=== PATIENT | female | born 1975 | race African-American/Black ===

== ENCOUNTER 2019-12-18 08:02 | Emergency (ER) | payer MEDICAID, OTHER ==
[~2019-12-18] VITALS: Ht 165.1 cm; Wt 61.2 kg
[2019-12-18 08:21] VITALS: BP 111/82
[2019-12-18 09:10] LABS: Basophils # (auto) 0 10 ^3/uL (0-0.2); Basophils % (auto) 0.9 % (0.0-2.0); Eosinophils # (auto) 0.1 10 ^3/uL (0-0.8); Eosinophils % (auto) 4.4 % (0.0-7.0); Hematocrit 39.5 % (36.0-46.0); Hemoglobin 13.2 g/dL (12.2-16.2); Lymphocytes # (auto) 0.6 10 ^3/uL (0.4-5.4); Mean Corpuscular Hemoglobin 31.4 pg (28.0-32.0); Mean Corpuscular Hgb Conc. 33.4 g/dL (32.0-36.0); Monocytes # (auto) 0.3 10 ^3/uL (0-1.3); Monocytes % (auto) 11.2 % (0.0-12.0); Neutrophils # (auto) 1.5 10 ^3/uL (1.6-8.6); Neutrophils % (auto) 59.5 % (37.0-80.0); Nucleated Red Blood Cells % 0.9 %; Red Blood Cells 4.21 10^6/uL (4.0-5.20); Red Cell Distribution Width 13.3 % (11.8-14.3); White Blood Cell 2.4 10^3/uL (4.4-10.8)
[2019-12-18] MEDS ORDERED: IOHEXOL 350 MG/ML 100ML IJ ONE (09:20)
[2019-12-18 09:35] LABS: Platelet Count (auto) 89 10^3/uL (140-450)
[2019-12-18 09:38] LABS: Albumin 2.7 g/dL (3.4-5.0); Calcium 8.4 mg/dL (8.5-10.1); Potassium 4.4 mmol/L (3.5-5.1)
[2019-12-18 09:43] LABS: BUN/Creatinine Ratio 25.2; Bilirubin, Total 0.3 mg/dL (0.2-1.0); Total Protein 9.2 g/dL (6.4-8.2)
[2019-12-18] MEDS ORDERED: HYDROcodone-ACET 5/325MG TAB PO PRN (11:00)
[2019-12-18] MEDS ORDERED: ALBUTEROL SULF 2.5 MG/0.5ML(0.5%) NEB SOLN NEB PRN (11:00)
[2019-12-18] MEDS ORDERED: ONDANSETRON HCL 4 MG/2 ML VIAL IV PRN (11:00)
[2019-12-18] MEDS ORDERED: hydrALAZINE HCL 20 MG/ML VL IV PRN (11:00)
[2019-12-18] MEDS ORDERED: NITROGLYCERIN 0.4 MG SL TAB SL PRN (11:00)
[2019-12-18] MEDS ORDERED: IPRATROPIUM BROM 0.5 MG/2.5ML INH SOL NEB PRN (11:00)
[2019-12-18] MEDS ORDERED: MORPHINE SULF INJ 2 MG/ML SYRINGE 1ML IV PRN ×2 (11:00)
[2019-12-18] MEDS ORDERED: ACETAMINOPHEN 500 MG TAB PO PRN (11:00)
[2019-12-18] MEDS ORDERED: SODIUM CHLORIDE 0.9% 1,000 ML IV SCH (11:15)
[2019-12-18 11:37] LABS: CRP High Sensitivity 0.41 mg/dL (< 0.3)
[2019-12-18] MEDS ORDERED: ATORVASTATIN 20 MG TAB PO SCH (22:00)
[2019-12-18] MEDS ORDERED: METOPROLOL TARTRATE 25 MG TAB PO SCH (22:00)
[2019-12-18 22:20] LABS: INR 0.92 (0.9-1.15)
[2019-12-19] MEDS ORDERED: ALBU2TAB4 PO (04:55)
[2019-12-19] MEDS ORDERED: LISINOPRIL 10 MG TAB PO SCH (10:00)
[2019-12-19] MEDS ORDERED: FAMOTIDINE 20 MG TAB PO SCH (10:00)
[2019-12-20 08:48] LABS: Hepatitis B Surface Antibody Positive
[2019-12-20 13:03] LABS: Hepatitis B Surface Antigen Negative (Negative); Hepatitis C Antibody Negative (Negative)
== END 2019-12-18 13:13 | disposition left against medical advice (07) ==
LOC: ER 08:02 → TELE 08:03 → UNDOADMIN 08:03 → ER 13:13
DX: R07.89 Other chest pain (principal); R79.1 Abnormal coagulation profile; F17.210 Nicotine dependence, cigarettes, uncomplicated; J45.909 Unspecified asthma, uncomplicated; Z98.51 Tubal ligation status
CPT/HCPCS: 36415; 71046; 71275; 76705; 80053; 83615; 83735; 83880; 84484; 85025; 85379; 85610; 86038; 86141; 86706; 86803; 87340; 93005; 93970; 99285; Q9967; 93017

== ENCOUNTER 2019-12-18 20:38 | Inpatient (IN) | payer MEDICAID ==
[~2019-12-18] VITALS: Ht 165.1 cm; Wt 62.0 kg
[2019-12-18] MEDS ORDERED: MORPHINE SULFATE 4 MG/ML SYR/VIAL IV ONE (22:15)
[2019-12-18] MEDS ORDERED: ONDANSETRON HCL 4 MG/2 ML VIAL IV ONE (22:15)
[2019-12-18 22:55] LABS: Basophils # (auto) 0 10 ^3/uL (0-0.2); Eosinophils # (auto) 0.1 10 ^3/uL (0-0.8); Eosinophils % (auto) 3.9 % (0.0-7.0); Hematocrit 29.6 % (36.0-46.0); Hemoglobin 10.4 g/dL (12.2-16.2); Lymphocytes # (auto) 0.6 10 ^3/uL (0.4-5.4); Lymphocytes % (auto) 27.7 % (10.0-50.0); Mean Corpuscular Hemoglobin 32.6 pg (28.0-32.0); Mean Corpuscular Volume 93.2 fL (80.0-100.0); Monocytes # (auto) 0.2 10 ^3/uL (0-1.3); Monocytes % (auto) 11.1 % (0.0-12.0); Neutrophils # (auto) 1.2 10 ^3/uL (1.6-8.6); Neutrophils % (auto) 56.3 % (37.0-80.0); Platelet Count (auto) 81 10^3/uL (140-450); Red Blood Cells 3.18 10^6/uL (4.0-5.20); Red Cell Distribution Width 12.8 % (11.8-14.3); White Blood Cell 2.2 10^3/uL (4.4-10.8)
[2019-12-18 23:19] LABS: Albumin 2.4 g/dL (3.4-5.0); Calcium 7.6 mg/dL (8.5-10.1); Magnesium 1.8 mg/dL (1.6-2.6); Potassium 3.6 mmol/L (3.5-5.1)
[2019-12-18 23:22] LABS: BUN/Creatinine Ratio 21.9
[2019-12-18 23:27] LABS: Bilirubin, Total 0.3 mg/dL (0.2-1.0); Total Protein 7.9 g/dL (6.4-8.2)
[2019-12-19] MEDS ORDERED: ACETAMINOPHEN 325 MG TAB PO PRN (00:45)
[2019-12-19] MEDS ORDERED: TEMAZEPAM 15 MG CAP PO PRN (00:45)
[2019-12-19] MEDS ORDERED: NITROGLYCERIN 0.4 MG SL TAB SL PRN (00:45)
[2019-12-19] MEDS ORDERED: ATORVASTATIN 20 MG TAB PO ONE (00:45)
[2019-12-19] MEDS ORDERED: ENOXAPARIN SOD 100 MG/1 ML SYRINGE SC ONE (01:00)
[2019-12-19] MEDS: ONDANSETRON HCL 4 MG/2 ML VIAL IV PRN ×3 (02:12→19:53)
[2019-12-19] MEDS: MORPHINE SULF INJ 2 MG/ML SYRINGE 1ML IV PRN ×3 (02:12→19:52)
[2019-12-19] MEDS: SODIUM CHLORIDE 0.9% 1,000 ML IV SCH ×2 (02:20→14:26)
--- NOTE | 2019-12-19 02:37 | NUR ---
Telemetry admit from RIK[facility] WALKER admitted to Telemetry. Patient oriented to RICHY FLOR, primary RN, unit, room, bed, and unit policies regarding patient care and visiting hours. Patient now on continuous telemetry monitoring, tele box #72 and telemetry reading on arrival to unit is SR 70S. Patient weighed by bedscale and encouraged to call if they need something. Pt is currently laying in bed with the rails up x2 and the bed is locked in the lowest position. Call light explained and placed within reach. All questions and concerns addressed, patient verbalized understanding.
[2019-12-19 02:45] VITALS: BP 98/45
[2019-12-19] MEDS ORDERED: ALBU2TAB4 PO (04:55)
--- NOTE | 2019-12-19 07:30 | NUR ---
RECEIVED REPORT FROM NIGHT NURSE. PATIENT RESTING IN BED, NO DISTRESS NOTED. PATIENT NPO FOR PROCEDURE. WILL CONTINUE TO MONITOR.
[2019-12-19] MEDS ORDERED: ADENOSINE 53 MG in GIVE UN-DILUTED 0 ML IV STA (08:13)
[2019-12-19 08:24] LABS: Cholesterol 174 mg/dL (< 200); HDL Cholesterol 56 mg/dL (40-59); LDL Cholesterol 98 mg/dL (< 100); Triglycerides 153 mg/dL (< 150)
[2019-12-19 08:54] VITALS: BP 102/54
[2019-12-19] MEDS: METOPROLOL TARTRATE 25 MG TAB PO SCH ×2 (10:00→21:40)
[2019-12-19] MEDS ORDERED: LISINOPRIL 5 MG TAB PO SCH (10:00)
[2019-12-19] MEDS: PANTOPRAZOLE 40 MG TAB PO SCH (10:00)
--- NOTE | 2019-12-19 10:36 | NUR ---
PATIENT COMPLAINING OF CHEST PAIN AND HEADACHE 05/26. REFUSING EKG, REFUSING NITRO, INSISTING ON MORPHINE, THAT WAS GIVEN TO HER EARLIER, SINCE THAT IS THE ONLY THING THAT HELPED HER. EDUCATION PROVIDED. WILL CONTINUE TO MONITOR.
[2019-12-19 13:00] VITALS: BP 115/72
[2019-12-19] MEDS ORDERED: traMADol HCL 50 MG TAB PO PRN (14:00)
[2019-12-19 16:08] LABS: INR 0.95 (0.9-1.15); Partial Thromboplastin Time 28.6 sec (23.64-32.05)
[2019-12-19 17:07] VITALS: BP 108/63
[2019-12-19 17:42] LABS: % Iron Saturation 22.9 % (15-50)
[2019-12-19 19:40] VITALS: BP 121/70
--- NOTE | 2019-12-19 19:55 | NUR ---
CHEST REGALADO 1934:PATIENT C/O 7/10 CHEST PAIN. PATIENT REQUESTING MORPHINE. PATIENT RESTING COMFORTABLY IN BED, WATCHING TV. NO S/S OF DISTRESS NOTED. 1939: VITALS 98.3F, 121/70, 83BPM, SPO2 99%, RR 18/MIN 1941: EKG DONE, WILL HAVE MD SIGN AND PLACE IN CHART 1946: PATIENT REFUSED NITRO FIRST LINE OF THERAPY. PATIENT DOES NOT WANT TO TRY NITRO. EDUCATION PROVIDED ON USE AND EFFECT OF NITRO TAB. PATIENT STILL REFUSES, WANTS MORPHINE AND ZOFRAN ONLY AT THIS TIME 1951: MORPHINE AND ZOFRAN GIVEN-SEE EMAR PATIENT TOLERATED WELL
[2019-12-19 22:00] VITALS: BP 115/74
[2019-12-19] MEDS ORDERED: ATORVASTATIN 20 MG TAB PO SCH (22:00)
--- NOTE | 2019-12-19 22:00 | NUR ---
PAGED HOSPITALIST PATIENT REQUESTS IBUPROFEN FOR HEADACHE. PATIENT HAS ORDERED TYLENOL AND TRAMADOL. PATIENT REFUSES BOTH, WANTS IBUPROFEN. WILL WAIT FOR MD TO CALL BACK
--- NOTE | 2019-12-19 22:35 | NUR ---
HOSPITALIST CALLED BACK UPDATED HOSPITALIST VALE OF PATIENT REQUEST FOR IBUPROFEN FOR HEADACHE. ALSO UPDATED HOSPITALIST THAT BUN AND CREAT WERE ELEVATED. ONE TIME ORDER FOR IBUPROFEN 600MG PO RECEIVED. ORDER READ BACK AND VERIFIED. ALSO NOTIFIED HOSPITALIST OF EKG THAT WAS DONE FOR CHEST PAIN EARLIER DURING SHIFT. HOSPITALIST Tremaine FERGUSON TO COME SIGN EKG LATER ON
[2019-12-19] MEDS ORDERED: IBUPROFEN 600 MG TAB PO ONE (22:45)
[2019-12-20 00:15] LABS: Alcohol, Urine < 3.0 mg/dL (0-5); Amphetamine Screen, Urine NEGATIVE (NEGATIVE); Barbiturate Scree,Urine NEGATIVE (NEGATIVE); Benzodiazephine Screen, Urine NEGATIVE (NEGATIVE); Cannabinoid Screen, Urine NEGATIVE (NEGATIVE); Cocaine Screen, Urine NEGATIVE (NEGATIVE); Opiate Scree,Urine POSITIVE (NEGATIVE); Phencyclidine Screen, Urine NEGATIVE (NEGATIVE)
[2019-12-20] MEDS: SODIUM CHLORIDE 0.9% 1,000 ML IV SCH (03:37)
--- NOTE | 2019-12-20 05:55 | NUR ---
LOW BP BP 85/46 BP RECHECKED THREE TIMES. SYSTOLIC BP REMAINS IN 80'S BP RECHECKS: 84/53, 80/49, 85/46 PATIENT ASYMPTOMATIC, RESTING COMFORTABLY IN BED. NO S/S OF DISTRESS, ABLE TO ANSWER ALL QUESTIONS. WILL PAGED HOSPITALIST TO NOTIFY OF LOW BP
[2019-12-20 05:56] VITALS: BP 85/46
[2019-12-20 06:39] LABS: Hemoglobin 11.4 g/dL (12.2-16.2)
[2019-12-20 06:42] LABS: Hematocrit 33.6 % (36.0-46.0); Mean Corpuscular Hemoglobin 32.2 pg (28.0-32.0); Mean Corpuscular Volume 94.6 fL (80.0-100.0); Platelet Count (auto) 85 10^3/uL (140-450); Red Blood Cells 3.55 10^6/uL (4.0-5.20); Red Cell Distribution Width 13.1 % (11.8-14.3)
[2019-12-20] MEDS ORDERED: SODIUM CHLORIDE 0.9% 500 ML IV ONE (06:45)
--- NOTE | 2019-12-20 06:45 | NUR ---
NEW ORDER ORDER RECEIVED FROM HOSPITALIST VALE FOR ONE TIME 500ML 0.9% NORMAL SALINE BOLUS WILL CARRY OUT ORDER
[2019-12-20 06:56] LABS: Albumin 2.1 g/dL (3.4-5.0); Calcium 7.4 mg/dL (8.5-10.1); Potassium 3.9 mmol/L (3.5-5.1)
[2019-12-20 07:01] LABS: BUN/Creatinine Ratio 13.6; Bilirubin, Total 0.2 mg/dL (0.2-1.0); Total Protein 7.4 g/dL (6.4-8.2)
[2019-12-20 07:03] LABS: Ferritin 251.1 ng/mL (10-322); Folate (Folic Acid) 12.44 ng/mL (5.38-24)
--- NOTE | 2019-12-20 07:08 | NUR ---
CLOSING PATIENT RESTING COMFORTABLY IN BED, NO S/S OF DISTRESS AT THIS TIME. NORMAL SALINE BOLUS RUNNING. CARE ENDORSED TO DAY SHIFT SAWYER SILVERIO. RN TO REASSESS BP ONCE BOLUS IS COMPLETE.
[2019-12-20 07:13] LABS: Band Neutrophils % (manual) 0; Basophils % (manual) 0 (0.0-2.0); Blast Cells 0; Metamyelocytes % 0; Myelocytes % 0; Promyelocytes % 0
--- NOTE | 2019-12-20 07:33 | NUR ---
RECEIVED CALL BACK FROM [facility] SET UP PERSON HOSPITALIST INFORMED ROLL THREADER OPERATOR MARTY OF PATIENT CRITICAL WBC OF 1.5. NEW ORDERS RECEIVED, SEE EMR FOR ORDERS.
[2019-12-20] MEDS ORDERED: FILGRASTIM (TBO) 300 MCG/0.5 ML SYRG SC ONE (07:45)
[2019-12-20 08:17] LABS: Eosinophils % (manual) 4 (0-7); Lymphocytes % (manual) 40 (10.0-50.0); Monocytes % (manual) 9 (0-12); Reactive Lymphocytes 3
[2019-12-20 09:00] VITALS: BP 89/57
--- NOTE | 2019-12-20 09:00 | NUR ---
Spoke with Doctor Montanez regarding medication orders of filgrastin per Doctor Tarik hold medication, let hematology MD give orders for medication.
[2019-12-20] MEDS: PANTOPRAZOLE 40 MG TAB PO SCH (10:10)
[2019-12-20] MEDS: ONDANSETRON HCL 4 MG/2 ML VIAL IV PRN ×2 (10:22→20:09)
[2019-12-20] MEDS ORDERED: HYDROcodone-ACET 5/325MG TAB PO PRN (10:30)
[2019-12-20] MEDS ORDERED: SODIUM CHLORIDE 0.9% 1,000 ML IV SCH ×2 (10:30→13:15)
[2019-12-20 10:53] LABS: Hepatitis B Surface Antibody Positive
[2019-12-20] MEDS: ALBUTEROL SULF 2.5 MG/0.5ML(0.5%) NEB SOLN NEB SCH ×2 (11:47→18:42)
[2019-12-20] MEDS: IPRATROPIUM BROM 0.5 MG/2.5ML INH SOL NEB SCH ×2 (11:48→18:42)
[2019-12-20] MEDS: Ensure Enlive Strawberry 8oz Bottle PO SCH ×2 (12:30→18:00)
[2019-12-20 12:37] VITALS: BP 102/65
[2019-12-20 12:40] VITALS: BP 99/54
[2019-12-20 13:09] LABS: Hepatitis B Surface Antigen Negative (Negative); Hepatitis C Antibody Negative (Negative)
[2019-12-20 15:20] VITALS: BP 99/54
[2019-12-20] MEDS ORDERED: IOHEXOL 350 MG/ML 100ML IJ ONE (16:00)
[2019-12-20 16:36] VITALS: BP 96/51
[2019-12-20] MEDS ORDERED: ACETAMINOPHEN/CODEINE#3 (300/30mg) TAB PO PRN (16:45)
--- NOTE | 2019-12-20 19:30 | NUR ---
Opening Shift Note Received report from Hannah JACQUES. Assumed care of patient, awake and alert. No S/S of distress/SOB or pain. Instructed on POC and to call for assist PRN, will continue to monitor for changes Q1hr and PRN.
--- NOTE | 2019-12-20 20:52 | NUR ---
AMA Note RIKY MURPHY states they want to leave the hospital Against Medical Advice (AMA). Patient encouraged to stay for further treatment/stabilization. MILY FERGUSON OPEN DIE INSPECTOR notified of patient's wishes. Patient advised of the risks and benefits of leaving AMA. Patient verbalized understanding. Patient encouraged to return to the ER if symptoms do not improve or worsen.
[2019-12-21 11:09] LABS: White Blood Cell 1.5 10^3/uL (4.4-10.8)
== END 2019-12-20 21:45 | disposition left against medical advice (07) | DRG 190 ==
LOC: ER 20:40 → TELE 20:41 → TELE-WESTW 12-19 02:40 → WEST WING 12-20 10:03
PROVIDERS: ADMIT Nurse Practitioner; ATTEND Internal Medicine
DX: I21.4 Non-ST elevation (NSTEMI) myocardial infarction (principal); E43 Unspecified severe protein-calorie malnutrition; D61.818 Other pancytopenia; N17.9 Acute kidney failure, unspecified; N18.3 Chronic kidney disease, stage 3 (moderate); E78.5 Hyperlipidemia, unspecified; F17.210 Nicotine dependence, cigarettes, uncomplicated; J45.909 Unspecified asthma, uncomplicated; Z53.29 Procedure and treatment not carried out because of patient's decision for other reasons; Z98.51 Tubal ligation status; Z82.49 Family history of ischemic heart disease and other diseases of the circulatory system; Z68.22 Body mass index [BMI] 22.0-22.9, adult
CPT/HCPCS: 36415; 71045; 78452; 80053; 80061; 80307; 80320; 82607; 82728; 82746; 83010; 83516; 83540; 83550; 83615; 83735; 84443; 84484; 85007; 85025; 85027; 85379; 85610; 85730; 86225; 86235; 86703; 86706; 86803; 87340; 87804; 93306; 94640; 96372; 96374; 96375; G0378; J0153; J1447; J2405

== ENCOUNTER 2020-02-12 09:57 | Inpatient (IN) | payer MEDICAID ==
[~2020-02-12] VITALS: Ht 165.1 cm; Wt 93.3 kg
[~2020-02-12 09:57] MED LIST: ALBU2TAB4 PO
[2020-02-12] MEDS ORDERED: SODIUM CHLORIDE 0.9% 1,000 ML IV ONE (10:23)
[2020-02-12] MEDS ORDERED: ASPirin 81 mg TAB PO ONE (10:30)
[2020-02-12] MEDS ORDERED: cefTRIAXone 1GM/50ML D5W 50 ML IV ONE (11:00)
[2020-02-12] MEDS ORDERED: NITROGLYCERIN 0.4 MG SL TAB SL ONE (11:00)
[2020-02-12 11:43] LABS: Basophils # (auto) 0 10 ^3/uL (0-0.2); Eosinophils # (auto) 0 10 ^3/uL (0-0.8); Eosinophils % (auto) 1.1 % (0.0-7.0); Hemoglobin 9.3 g/dL (12.2-16.2); Lymphocytes # (auto) 0.7 10 ^3/uL (0.4-5.4); Lymphocytes % (auto) 23.1 % (10.0-50.0); Mean Corpuscular Hemoglobin 30.8 pg (28.0-32.0); Mean Corpuscular Hgb Conc. 33.1 g/dL (32.0-36.0); Mean Corpuscular Volume 92.9 fL (80.0-100.0); Monocytes # (auto) 0.2 10 ^3/uL (0-1.3); Monocytes % (auto) 7.3 % (0.0-12.0); Neutrophils # (auto) 1.9 10 ^3/uL (1.6-8.6); Neutrophils % (auto) 67.5 % (37.0-80.0); Nucleated Red Blood Cells % 0.1 %; Platelet Count (auto) 86 10^3/uL (140-450); Red Blood Cells 3.01 10^6/uL (4.0-5.20); Red Cell Distribution Width 13.1 % (11.8-14.3); White Blood Cell 2.9 10^3/uL (4.4-10.8)
[2020-02-12 12:10] LABS: Albumin 1.5 g/dL (3.4-5.0); Anion Gap 10 (5-15); BUN/Creatinine Ratio 12.7; Blood Urea Nitrogen 49 mg/dL (7-18); Calcium 7.8 mg/dL (8.5-10.1); Carbon Dioxide 15 mmol/L (21-32); Chloride 110 mmol/L (98-107); GFR African American 16 mL/min; GFR Non-African American 14 mL/min; Glucose 88 mg/dL (74-106); Potassium 4.2 mmol/L (3.5-5.1); Sodium 135 mmol/L (136-145)
[2020-02-12 12:15] LABS: Alanine Aminotransferase 23 U/L (13-56); Alkaline Phosphatase 66 U/L (45-117); Aspartate Aminotransferase 29 U/L (15-37); Bilirubin, Total 0.2 mg/dL (0.2-1.0); Total Protein 7.4 g/dL (6.4-8.2)
[2020-02-12] MEDS ORDERED: MORPHINE SULF INJ 2 MG/ML SYRINGE 1ML IV PRN ×2 (13:30)
[2020-02-12] MEDS ORDERED: NITROGLYCERIN 0.4 MG SL TAB SL PRN (13:30)
[2020-02-12] MEDS ORDERED: HYDROcodone-ACET 5/325MG TAB PO PRN (13:30)
[2020-02-12 14:12] LABS: CRP High Sensitivity 3.12 mg/dL (< 0.3)
--- NOTE | 2020-02-12 15:47 | NUR ---
Telemetry admit from ER RIKY MURPHY admitted to Telemetry unit after SBAR received. Patient oriented to GEE SOSA RN primary RN, unit, room, bed, and unit policies regarding patient care and visiting hours. Patient now on continuous telemetry monitoring, tele box # 1 and telemetry reading on arrival to unit is SR. Patient placed on bedside oxygen, weighed by bedscale and encouraged to call if they need something. All questions and concerns addressed, patient verbalized understanding.
[2020-02-12 15:58] VITALS: BP 110/59
--- NOTE | 2020-02-12 17:19 | NUR ---
PT TRANSFERRED TO 284B REPORT GIVEN TO JOSE MANUEL JACQUES. PT TRANSFERRED WITH TELEMETRY BOX AND BELONGINGS. NO S/S OF DISTRESS NOTED AT THIS TIME.
--- NOTE | 2020-02-12 17:20 | NUR ---
Assumed care of Patient, admit from East to room 284B. Patient sitting up in bed no acute distress or sob noted. Will cont care
[2020-02-12] MEDS: ONDANSETRON HCL 4 MG/2 ML VIAL IV PRN (20:57)
[2020-02-12 22:00] VITALS: BP 90/49
[2020-02-13] VITALS (10 sets, daily range): BP systolic 87–107; BP diastolic 49–60
--- NOTE | 2020-02-13 00:43 | NUR ---
HOSPITALIST PAGED TELEMETRY REPORTING PATIENT IS IN A FIRST DEGREE HEART BLOCK. EKG PERFORMED. VITALS FOLLOWS BP 92/60, HR 75, RR 20BPM, O2 96%ON ROOM AIR, PLACED ON 2LNC. TEMP 98.4F ORAL. PATIENT REPORTING PAIN LEVEL HAS IMPROVED /10.
--- NOTE | 2020-02-13 00:48 | NUR ---
HOSPITALIST RETURNS CALL HOSPITALIST MILY FERGUSON RETURNS CALL. UPDATED ON EKG FINDINGS OF SINUS RHYTHM HR 71 WITH PROLONGED IL INTERVAL (NEW ONSET). NEW ORDERS RECEIVED FOR CARDIOLOGY CONSULT, CONTINUE TO MONITOR PATIENT. PATIENT IS ASYMPTOMATIC AT THIS TIME.
[2020-02-13] MEDS: ONDANSETRON HCL 4 MG/2 ML VIAL IV PRN (06:08)
[2020-02-13] MEDS: ACETAMINOPHEN 500 MG TAB PO PRN ×2 (06:08→20:30)
--- NOTE | 2020-02-13 06:08 | NUR ---
ABDOMINAL PAIN/STOMACH UPSET PATIENT MEDICATED WITH TYLENOL AND ZOFRAN PRN FOR NAUSEA/STOMACH UPSET. PATIENT REPORTING MID EPIGASTRIC ABD PAIN RATED 8/10. INFORMED PATIENT THAT HER BLOOD PRESSURE IS TOO LOW TO ADMINISTER MORPHINE AT THIS TIME. PATIENT AGREES TO TAKE TYLENOL PO FOR HER PAIN.
[2020-02-13 06:31] LABS: Basophils # (auto) 0 10 ^3/uL (0-0.2); Basophils % (auto) 0.8 % (0.0-2.0); Lymphocytes # (auto) 0.7 10 ^3/uL (0.4-5.4); Neutrophils # (auto) 1.4 10 ^3/uL (1.6-8.6); Nucleated Red Blood Cells % 0.1 %
[2020-02-13 06:34] LABS: Eosinophils # (auto) 0 10 ^3/uL (0-0.8); Eosinophils % (auto) 2.1 % (0.0-7.0); Hematocrit 23.8 % (36.0-46.0); Hemoglobin 8.2 g/dL (12.2-16.2); Lymphocytes % (auto) 28.9 % (10.0-50.0); Mean Corpuscular Hemoglobin 31.9 pg (28.0-32.0); Mean Corpuscular Hgb Conc. 34.6 g/dL (32.0-36.0); Mean Corpuscular Volume 92.3 fL (80.0-100.0); Monocytes # (auto) 0.3 10 ^3/uL (0-1.3); Monocytes % (auto) 10.9 % (0.0-12.0); Neutrophils % (auto) 57.3 % (37.0-80.0); Platelet Count (auto) 79 10^3/uL (140-450); Red Blood Cells 2.58 10^6/uL (4.0-5.20); Red Cell Distribution Width 13.3 % (11.8-14.3); White Blood Cell 2.4 10^3/uL (4.4-10.8)
[2020-02-13 06:47] LABS: Albumin 1.1 g/dL (3.4-5.0); Calcium 6.9 mg/dL (8.5-10.1); Potassium 4.8 mmol/L (3.5-5.1)
[2020-02-13 06:53] LABS: Bilirubin, Total 0.1 mg/dL (0.2-1.0); Phosphorus 4.7 mg/dL (2.5-4.90); Total Protein 6.2 g/dL (6.4-8.2)
[2020-02-13] MEDS: FAMOTIDINE 20 MG TAB PO SCH (09:26)
--- NOTE | 2020-02-13 12:20 | NUR ---
Nephro at bedside MD Estrella at bedside, aware of patient's status including abnormal labs, VS including decreased BP. New orders received for sodium bicarb drip. Spoke to Pharmacy and awaiting drip to be sent up to medicate patient. Patient instructed to provide urine sample as soon as she goes, instructed on need for strict I&O's, she verbalized understanding. Will cont care
--- NOTE | 2020-02-13 12:25 | NUR ---
Patient kept NPO for procedure at this time as instructed by MD Mccabe. Lunch tray removed, patient has not ate since breakfast she states. Awaiting Radiologist to call back regarding biopsy.
--- NOTE | 2020-02-13 12:40 | NUR ---
Hospitalist at bedside MD Mccabe at bedside, aware of patient's status, labs, POC including bone marrow biopsy scheduled for tomorrow, patient c/o abd pain, aware of VS including decreased BP. New orders received to dc norco and morphine and cont tylenol only for pain. New orders received for NS 500ml bolus once. NS bolus started at this time as ordered. Patient aware to cont NPO status at this time until further notice as Radiologist Dr Travis states he might be able to perform biopsy today but not sure yet. Dr Travis states he will call primary nursing to notify when patient can eat if not doing procedure today. Patient verbalized understanding. New orders for midline obtained and PICC rn notified. Cont care
--- NOTE | 2020-02-13 12:45 | NUR ---
Urine sent as ordered spoke to lab regarding urine sample sent by SAWYER Soto, per carpenter/labor container was not closed properly and urine spilled. Patient instructed to collect another sample she verbalized understanding.
[2020-02-13] MEDS ORDERED: SODIUM CHLORIDE 0.9% 500 ML IV ONE (13:00)
[2020-02-13] MEDS ORDERED: fentaNYL CITRATE 100 MCG/2 ML VL IV ONE (13:30)
[2020-02-13] MEDS ORDERED: MIDAZOLAM HCL 1MG/1ML-2 ML VIAL IV ONE (13:30)
--- NOTE | 2020-02-13 13:30 | NUR ---
Midline Placement: Patient educated on need for midline placement. All risks and benefits explained and all questions and concerns addresses prior to procedure. 18g/10cm midline inserted via left brachial vein using Ultrasound. Sterile technique utilized. Blood return obtained from lumen and flushed easily with NS using proper technique. Midline secured with saline lock; biodisc and occlusive dressing applied. Primary RN notified. Midline lot #[id number]
--- NOTE | 2020-02-13 13:43 | NUR ---
Awaiting on Solumedrol drip at this time, warren Velázquez in pharmacy is still mixing and not ready yet. She states she will call when med is ready.
[2020-02-13] MEDS: SODIUM BICARBONATE 50ML VIAL 75 ML in D5W/SOD CHL 0.45% 1,000 ML IV SCH ×2 (13:45→22:16)
[2020-02-13] MEDS ORDERED: LIDOCAINE 2%HCL (LOCAL ANESTH.) INJ 20ML MDV ONE (14:01)
[2020-02-13 14:11] LABS: INR 0.92 (0.9-1.15); Partial Thromboplastin Time 29.4 sec (23.64-32.05)
[2020-02-13] MEDS: methylPREDNISolone SOD SUCC 1,000 MG in SODIUM CHL 0.9% 250 ML IV SCH (14:14)
--- NOTE | 2020-02-13 14:14 | NUR ---
Solumedrol sent from Pharmacy medicated at this time, med sent from pharmacy now.
--- NOTE | 2020-02-13 14:24 | NUR ---
Patient down to radiology for kidney biopsy. No distress noted on departure.
--- NOTE | 2020-02-13 15:25 | NUR ---
Patient back from Radiology band aid to left flank noted c/d/i. VS assessed at this time BP 89/53 hr 69 patient denies dizziness/lightheaded 1540 VS BP 101/56 HR 71 1555 VS BP 93/54 HR 76 Hospitalist paged to notify. Awaiting for Dr. Mccabe call back. Patient denies dizziness, light headed, denies s/s hypotension. No distress or sob noted.
--- NOTE | 2020-02-13 15:25 | NUR ---
Patient placed on bedrest as ordered s/p biopsy she verbalized understanding.
--- NOTE | 2020-02-13 16:06 | NUR ---
Spoke to Hospitalist MD Mccabe aware of patient's status including decreased BP. No new orders received at this time. Per MD Mccabe cont to monitor at this time, cont sodium bicarb at 120ml/hr as ordered. Awaiting Rheumatology and Cardio consult.
--- NOTE | 2020-02-13 16:30 | NUR ---
Division Controller at bedside Dr. Gonsales at bedside, spoke to patient extensively regarding current status and disease process. No new orders at this time. Per MD continue current tx. Cont care
--- NOTE | 2020-02-13 18:42 | NUR ---
Patient requesting breathing tx pt requesting breathing tx for her asthma, no sob noted at this time. Spoke to Hospitalist Michaela and new orders received. Melina.T. paged to bedside.
[2020-02-13] MEDS: ALBUTEROL SULF 2.5 MG/0.5ML(0.5%) NEB SOLN NEB PRN (18:54)
[2020-02-13] MEDS: IPRATROPIUM BROM 0.5 MG/2.5ML INH SOL NEB PRN (18:54)
--- NOTE | 2020-02-13 18:55 | NUR ---
PRN MED NEB TX ADMINISTERED AND ABG REFUSED AT THIS TIME. SAWYER SCOTT AWARE.
--- NOTE | 2020-02-13 19:00 | NUR ---
Patient care endorsed endorsed care to Joe rn. Patient sitting up in bed no acute distress or sob. Patient received breathing tx and states feeling better. Call light within reach.
--- NOTE | 2020-02-13 19:28 | NUR ---
Opening Shift Note Assumed care of patient, awake and alert x 4. No S/S of distress/SOB. Bed is in lowest position and locked. Call light within reach. Board updated. Patient made aware that she needs to maintain bedrest until morning. Tele box number matches monitor and leads are in correct placement. Instructed on POC and to call for assist PRN, will continue to monitor for changes Q1hr and PRN.
--- NOTE | 2020-02-13 20:25 | NUR ---
Unable to obtain consent regarding bone marrow biopsy, per order. Patient still has questions regarding the procedure. MD Saab will be made aware in the AM when he arrives. Addendum: 02/14/20 at 0742 by JOAO JENSEN RN Endorsed to day shift SAWYER at 0716.
--- NOTE | 2020-02-13 20:30 | NUR ---
Patient reports pain 6 out of 10 and requests Tylenon for pain, despite restriction for mild pain. She states it helps her pain become manageable. Addendum: 02/14/20 at 0537 by JOAO JENSEN RN Tylenol
[2020-02-13 22:32] LABS: Urine Bacteria FEW /hpf (None Seen); Urine Blood 2+ /uL (Negative); Urine Specific Gravity 1.011 (1.001-1.035); Urine WBC 1 /hpf (0 - 5)
[2020-02-13 22:43] LABS: Creatinine, Urine 90 mg/dL (30.0-125.0); Sodium Urine 30 mmol/L (40-220)
[2020-02-14] MEDS: ONDANSETRON HCL 4 MG/2 ML VIAL IV PRN ×2 (03:13→07:33)
[2020-02-14 05:00] VITALS: BP 117/53
[2020-02-14] MEDS: ACETAMINOPHEN 500 MG TAB PO PRN (05:36)
[2020-02-14] MEDS: SODIUM BICARBONATE 50ML VIAL 75 ML in D5W/SOD CHL 0.45% 1,000 ML IV SCH ×2 (05:36→16:43)
--- NOTE | 2020-02-14 05:36 | NUR ---
Patient reports pain 6 out of 10 and requests Tylenol for pain, despite restriction for mild pain. She states it helps her pain become manageable.
[2020-02-14 06:06] LABS: Albumin 1.1 g/dL (3.4-5.0); Calcium 6.5 mg/dL (8.5-10.1); Potassium 4.5 mmol/L (3.5-5.1)
[2020-02-14 06:09] LABS: BUN/Creatinine Ratio 13.2; Bilirubin, Total 0.1 mg/dL (0.2-1.0); Total Protein 6.2 g/dL (6.4-8.2)
--- NOTE | 2020-02-14 07:30 | NUR ---
Opening Shift Note RECEIVED REPORT FROM NOC RN. Assumed care of patient, awake and alert. No S/S of distress/SOB or pain. BED IN LOWEST, LOCKED POSITION WITH SIDERAILS UP x2 AND CALL LIGHT WITHIN REACH. Instructed on POC and to call for assist PRN, will continue to monitor for changes Q1hr and PRN.
[2020-02-14] MEDS ORDERED: HYDROmorphone HCL 2 MG/ML VL IV PRN (08:00)
[2020-02-14 09:00] VITALS: BP 117/72
[2020-02-14] MEDS: FAMOTIDINE 20 MG TAB PO SCH (09:38)
[2020-02-14] MEDS: methylPREDNISolone SOD SUCC 1,000 MG in SODIUM CHL 0.9% 250 ML IV SCH (10:27)
--- NOTE | 2020-02-14 11:45 | NUR ---
DR. ANGULO AT BEDSIDE.
[2020-02-14] MEDS ORDERED: MORPHINE SULF INJ 2 MG/ML SYRINGE 1ML IV ONE (12:15)
[2020-02-14] MEDS: SODIUM BICARBONATE 650 MG TAB PO SCH ×3 (12:36→21:48)
[2020-02-14] MEDS: IPRATROPIUM BROM 0.5 MG/2.5ML INH SOL NEB PRN ×2 (12:42→23:31)
[2020-02-14] MEDS: ALBUTEROL SULF 2.5 MG/0.5ML(0.5%) NEB SOLN NEB PRN ×2 (12:42→23:31)
[2020-02-14 13:00] VITALS: BP 119/71
[2020-02-14] MEDS ORDERED: METOCLOPRAMIDE HCL 10 MG TAB PO ONE (15:30)
--- NOTE | 2020-02-14 19:15 | NUR ---
RT NOTE PT WAS SEEN BY RT FOR PRN HHN TX. PT IS AWAKE AND ALERT WITHOUT SOB OR DISTRESS NOTED. PT STATES NO TREATMENT NEEDED AT THIS TIME. PT STATES SHE MIGHT CALL FOR A TX LATER. NO TREATMENT INDICATED AT THIS TIME. HR 64, RR 16, BS CTA, POX 99% ON ROOM AIR. CONT ORDERED Addendum: 02/14/20 at 2015 by Gi Malcolm RT Amended: Links added.
[2020-02-14 22:03] VITALS: BP 115/60
--- NOTE | 2020-02-14 23:31 | NUR ---
RT NOTE PT REQUESTS A PRN HHN TX. PT TOLERATES WELL VIA MASK. NO ADVERSE REACTION NOTED. CONT ORDERED Addendum: 02/14/20 at 2332 by Gi Malcolm RT Amended: Links added.
[2020-02-15] MEDS: SODIUM BICARBONATE 50ML VIAL 75 ML in D5W/SOD CHL 0.45% 1,000 ML IV SCH ×2 (00:47→09:24)
[2020-02-15 05:07] VITALS: BP 118/71
[2020-02-15] MEDS: SODIUM BICARBONATE 650 MG TAB PO SCH ×4 (05:29→22:02)
[2020-02-15] MEDS: ONDANSETRON HCL 4 MG/2 ML VIAL IV PRN (05:36)
[2020-02-15] MEDS: ACETAMINOPHEN 500 MG TAB PO PRN (05:58)
[2020-02-15] MEDS: IPRATROPIUM BROM 0.5 MG/2.5ML INH SOL NEB PRN ×3 (06:15→22:49)
[2020-02-15] MEDS: ALBUTEROL SULF 2.5 MG/0.5ML(0.5%) NEB SOLN NEB PRN ×3 (06:15→22:49)
[2020-02-15 06:45] LABS: Basophils # (auto) 0 10 ^3/uL (0-0.2); Eosinophils # (auto) 0 10 ^3/uL (0-0.8); Monocytes # (auto) 0.4 10 ^3/uL (0-1.3); Red Blood Cells 2.33 10^6/uL (4.0-5.20); Red Cell Distribution Width 13.1 % (11.8-14.3)
[2020-02-15 06:47] LABS: Basophils % (auto) 0.4 % (0.0-2.0); Hematocrit 21.2 % (36.0-46.0); Hemoglobin 7.4 g/dL (12.2-16.2); Lymphocytes # (auto) 0.6 10 ^3/uL (0.4-5.4); Lymphocytes % (auto) 9.3 % (10.0-50.0); Mean Corpuscular Hemoglobin 31.9 pg (28.0-32.0); Mean Corpuscular Hgb Conc. 35.1 g/dL (32.0-36.0); Mean Corpuscular Volume 90.9 fL (80.0-100.0); Monocytes % (auto) 7.1 % (0.0-12.0); Neutrophils # (auto) 5.2 10 ^3/uL (1.6-8.6); Neutrophils % (auto) 83.2 % (37.0-80.0); Platelet Count (auto) 92 10^3/uL (140-450); White Blood Cell 6.2 10^3/uL (4.4-10.8)
[2020-02-15 07:03] LABS: BUN/Creatinine Ratio 14.3; Calcium 6.3 mg/dL (8.5-10.1); Potassium 3.9 mmol/L (3.5-5.1)
--- NOTE | 2020-02-15 07:20 | NUR ---
OPENING SHIFT NOTE ASSUMED CARE OF PATIENT FROM TEAMCENTER CONSULTANT RN CRYSTAL. PATIENT IS AWAKE, ALERT, AND ORIENTED X4. PATIENT HAS NO S/S OF DISTRESS/SOB OR PAIN. INSTRUCTED PATIENT ON POC, PATIENT VERBALIZED UNDERSTANDING. BED IS IN LOWEST POSITION WITH SIDE RAILS RAISED X2, BED WHEELS LOCKED, AND CALL LIGHT IS WITHIN REACH. WILL CONTINUE TO MONITOR.
[2020-02-15 07:47] VITALS: BP 107/58
[2020-02-15] MEDS: FAMOTIDINE 20 MG TAB PO SCH (09:12)
--- NOTE | 2020-02-15 10:15 | NUR ---
MD CASTELLANOS AT BEDSIDE UPDATED MD ON PATIENT'S STATUS INCLUDING BUN AND CREATININE LEVELS, MD IS AWARE AND WILL PUT IN NEW ORDERS.
--- NOTE | 2020-02-15 10:20 | NUR ---
COMPLETE LINEN CHANGED. PT AMBULATED TO RESTROOM TO WASH UP
[2020-02-15] MEDS: methylPREDNISolone SOD SUCC 1,000 MG in SODIUM CHL 0.9% 250 ML IV SCH (10:40)
[2020-02-15] MEDS ORDERED: FUROSEMIDE 20 MG TAB PO ONE (10:45)
--- NOTE | 2020-02-15 12:11 | NUR ---
MD ANGULO AT BEDSIDE UPDATED MD ON PATIENT'S STATUS INCLUDING HEMOGLOBIN OF 7.4, PAIN OF 10/10 AND NAUSEA AND EMESIS OF 100 ML. MD IS AWARE AND WILL PUT IN ORDERS.
[2020-02-15] MEDS ORDERED: METOCLOPRAMIDE HCL 5MG/ml INJ 2ml VIAL IV ONE (12:45)
[2020-02-15 13:00] VITALS: BP 133/76
--- NOTE | 2020-02-15 15:00 | NUR ---
INFORMED MD ANGULO PATIENT IS STILL HAVING PAIN 10/, MD IS AWARE AND ORDERED MORPHINE. WILL FOLLOW THROUGH WITH ORDERS.
[2020-02-15] MEDS: MORPHINE SULF INJ 2 MG/ML SYRINGE 1ML IV PRN ×2 (15:28→22:20)
[2020-02-15 17:05] VITALS: BP 120/60
--- NOTE | 2020-02-15 19:19 | NUR ---
CLOSING SHIFT NOTE ENDORSED CARE TO RESEARCH TECH RN NARINDER. PATIENT HAS NO S/S OF DISTRESS/SOB OR PAIN AT THIS TIME.
--- NOTE | 2020-02-15 19:20 | NUR ---
Opening Shift Note Assumed care of patient, awake and alert. No S/S of distress/SOB or pain. Instructed on POC and to call for assist PRN, will continue to monitor for changes Q1hr and PRN. Patient in the lowest possible position with bed rails up x2 and call light with in reach. Will continue to monitor patient.
[2020-02-15 20:00] VITALS: BP 119/72
--- NOTE | 2020-02-15 20:00 | NUR ---
Patient stated that her knees have gotten bigger as well as her thighs. She stated that she noted this when she walked to the bathroom and felt pain in her knees. No edema noted, but will continue to monitor patient and let dayshift RN know to continue to monitor.
[2020-02-15 22:00] VITALS: BP 119/72
[2020-02-15] MEDS: MYCOPHENOLATE 500 MG TAB PO SCH (22:02)
--- NOTE | 2020-02-15 22:20 | NUR ---
Patient complained of pain of 8/10 post walking to the bathroom. Morphine given for pain. Will continue to monitor patient. Breathing treatment requested because patient also complained of SOB and needing a breathing treatment.
[2020-02-15] MEDS: METOCLOPRAMIDE HCL 5MG/ml INJ 2ml VIAL IV PRN (22:21)
[2020-02-15 23:45] LABS: Protein, Urine 263.6 mg/dL (0.0-11.9)
[2020-02-16 05:00] VITALS: BP 124/69
[2020-02-16] MEDS: SODIUM BICARBONATE 650 MG TAB PO SCH ×4 (06:16→22:13)
--- NOTE | 2020-02-16 06:58 | NUR ---
Closing note. Patient in the lowest possible position with bed rails up x2, and call light within reach. Patient does not complain of pain at this time. Will endorse to day shift.
[2020-02-16 06:59] LABS: Basophils # (auto) 0 10 ^3/uL (0-0.2); Eosinophils # (auto) 0 10 ^3/uL (0-0.8); Monocytes # (auto) 0.7 10 ^3/uL (0-1.3); Platelet Count (auto) 95 10^3/uL (140-450); Red Blood Cells 2.46 10^6/uL (4.0-5.20); Red Cell Distribution Width 13.2 % (11.8-14.3)
[2020-02-16 07:01] LABS: Hematocrit 22.3 % (36.0-46.0); Hemoglobin 7.7 g/dL (12.2-16.2); Lymphocytes # (auto) 0.6 10 ^3/uL (0.4-5.4); Lymphocytes % (auto) 7.6 % (10.0-50.0); Mean Corpuscular Hemoglobin 31.5 pg (28.0-32.0); Mean Corpuscular Hgb Conc. 34.7 g/dL (32.0-36.0); Mean Corpuscular Volume 90.8 fL (80.0-100.0); Neutrophils # (auto) 7.1 10 ^3/uL (1.6-8.6); Neutrophils % (auto) 84.4 % (37.0-80.0); White Blood Cell 8.5 10^3/uL (4.4-10.8)
--- NOTE | 2020-02-16 07:18 | NUR ---
OPENING SHIFT NOTE ASSUMED CARE OF PATIENT FROM TAKER AWAY RN NARINDER. PATIENT IS AWAKE, ALERT, AND ORIENTED X4. PATIENT HAS NO S/S OF DISTRESS/SOB OR PAIN. INSTRUCTED PATIENT ON POC, PATIENT VERBALIZED UNDERSTANDING. BED IS IN LOWEST POSITION WITH SIDE RAILS RAISED X2, BED WHEELS LOCKED, AND CALL LIGHT IS WITHIN REACH.
[2020-02-16 07:19] LABS: BUN/Creatinine Ratio 14.5; Calcium 6.8 mg/dL (8.5-10.1)
[2020-02-16 07:47] VITALS: BP 116/61
[2020-02-16] MEDS: ALBUTEROL SULF 2.5 MG/0.5ML(0.5%) NEB SOLN NEB PRN ×2 (07:52→23:36)
--- NOTE | 2020-02-16 08:30 | NUR ---
PATIENT REFUSED BREAKFAST BECAUSE SHE IS NAUSEAS, OFFERED NAUSEA MEDICATION, BUT PATIENT REFUSED BECAUSE SHE STATES REGLAN DOES NOT WORK. WILL INFORM .
[2020-02-16 09:00] VITALS: BP 116/61
[2020-02-16] MEDS: methylPREDNISolone SOD SUCC 40 MG/ML VL IV SCH ×3 (09:37→22:12)
[2020-02-16] MEDS: METOCLOPRAMIDE HCL 5MG/ml INJ 2ml VIAL IV PRN (09:37)
[2020-02-16] MEDS: FAMOTIDINE 20 MG TAB PO SCH (10:38)
[2020-02-16] MEDS: MYCOPHENOLATE 500 MG TAB PO SCH ×2 (10:38→22:13)
--- NOTE | 2020-02-16 11:30 | NUR ---
MD GIBSON AT BEDSIDE UPDATED MD ON PATIENT'S STATUS INCLUDING PATIENT STILL NAUSEAS AFTER REGLAN WAS GIVEN AND PATIENT IS SOB UPON EXERTION. MD IS AWARE AND ORDERED PROMETHAZINE TO BE GIVEN. WILL FOLLOW THROUGH WITH ORDERS.
[2020-02-16 13:00] VITALS: BP 119/64
[2020-02-16] MEDS ORDERED: PANTOPRAZOLE 40 MG TAB PO ONE (14:00)
[2020-02-16] MEDS: PROMETHAZINE HCL 25 MG/ML 1ML IV PRN ×2 (14:44→19:59)
[2020-02-16] MEDS: SODIUM CHLORIDE 0.9% 1,000 ML IV SCH (14:50)
[2020-02-16 17:35] VITALS: BP 130/66
--- NOTE | 2020-02-16 19:19 | NUR ---
CLOSING SHIFT NOTE ENDORSED CARE TO CUSTOMER SOLUTIONS COORDINATOR SAWYER MALLOY. PATIENT HAS NO S/S OF DISTRESS/SOB OR PAIN AT THIS TIME.
[2020-02-16] MEDS: MORPHINE SULF INJ 2 MG/ML SYRINGE 1ML IV PRN (20:00)
--- NOTE | 2020-02-16 20:00 | NUR ---
Opening Shift Note Assumed care of patient, awake and alert. No S/S of distress/SOB or pain. Instructed on POC and to call for assist PRN, will continue to monitor for changes Q1hr and PRN.
--- NOTE | 2020-02-16 20:00 | NUR ---
Patient complaints of headache, back pain and nausea. No emesis noted. Medicated with Morphine 1 mg IVP and phenergan 12.5 mg IVP.
[2020-02-16 21:47] VITALS: BP 136/76
[2020-02-16] MEDS: IPRATROPIUM BROM 0.5 MG/2.5ML INH SOL NEB PRN (23:36)
[2020-02-17] VITALS (7 sets, daily range): BP systolic 107–146; BP diastolic 60–89
[2020-02-17] MEDS: MORPHINE SULF INJ 2 MG/ML SYRINGE 1ML IV PRN ×4 (00:03→19:26)
--- NOTE | 2020-02-17 00:03 | NUR ---
Patient complains of severe pain to back 04/25. Patient states previous analgesic (Morphine 1mg) doesn't appear to be effective. Dr. Baldwin informed of patient's pain. New order obtained for Morphine 2 mg. IVP every 4 hours.
[2020-02-17] MEDS: SODIUM CHLORIDE 0.9% 1,000 ML IV SCH ×2 (02:50→12:03)
[2020-02-17] MEDS: SODIUM BICARBONATE 650 MG TAB PO SCH ×4 (06:34→21:11)
--- NOTE | 2020-02-17 07:10 | NUR ---
OPENING SHIFT NOTE ASSUMED CARE OF PATIENT FROM SALES FLOOR TEAM LEADER SAWYER MALLOY. PATIENT IS AWAKE, ALERT, AND ORIENTED X4. PATIENT HAS NO S/S OF DISTRESS/SOB OR PAIN. INSTRUCTED PATIENT ON POC, PATIENT VERBALIZED UNDERSTANDING. BED IS IN LOWEST POSITION WITH SIDE RAILS RAISED X2, BED WHEELS LOCKED, AND CALL LIGHT IS WITHIN REACH. WILL CONTINUE TO MONITOR.
[2020-02-17] MEDS: PANTOPRAZOLE 40 MG TAB PO SCH (09:18)
[2020-02-17] MEDS: MYCOPHENOLATE 500 MG TAB PO SCH ×2 (09:18→21:12)
[2020-02-17] MEDS: methylPREDNISolone SOD SUCC 40 MG/ML VL IV SCH ×2 (09:18→21:12)
[2020-02-17] MEDS: IPRATROPIUM BROM 0.5 MG/2.5ML INH SOL NEB PRN ×2 (09:38→19:28)
[2020-02-17] MEDS: ALBUTEROL SULF 2.5 MG/0.5ML(0.5%) NEB SOLN NEB PRN ×2 (09:39→19:28)
--- NOTE | 2020-02-17 09:43 | NUR ---
recd page for breathing tx. pt is on room air, spo2 100%, hr 70, rr 16. no s/s of respiratory distress noted. lungs are decreased t/o anterior lobes. hhn tx administered as ordered prn. no adverse reactions to medication.
--- NOTE | 2020-02-17 11:35 | NUR ---
MD GIBSON AT BEDSIDE. UPDATED MD ON PATIENT'S STATUS. MD IS AWARE, NO NEW ORDERS GIVEN AT THIS TIME. WILL CONTINUE TO MONITOR.
[2020-02-17] MEDS: PROMETHAZINE HCL 25 MG/ML 1ML IV PRN (12:00)
--- NOTE | 2020-02-17 16:44 | NUR ---
PATIENT IS NONCOMPLIANT WITH INTAKE AND OUTPUT. PATIENT EMPTIED URINE HAT WITHOUT INFORMING MYSELF OR MOTORBOAT MECHANIC INBOARD/OUTBOARD. MOTORBOAT MECHANIC INBOARD/OUTBOARD AT BEDSIDE AT THIS TIME AND HAS GIVEN PATIENT 2 PITCHERS OF WATER. PER PATIENT SHE HAS ONLY HAD ONE PITCHER.
--- NOTE | 2020-02-17 19:14 | NUR ---
CLOSING SHIFT NOTE ENDORSED CARE TO LABOR RELATIONS SPECIALIST SAWYER HORTON. INFORMED RN PATIENT IS HAVING 10/10 PAIN, PER RN HE WILL ADMINISTER PAIN MEDS ORDERED.
--- NOTE | 2020-02-17 19:15 | NUR ---
Opening note Assumed care of patient. Bed in lowest position and locked. Side rails up x2. No SOB or distress noted. POC discussed. Patient verbalized understanding. Will continue to monitor.
[2020-02-18] VITALS (8 sets, daily range): BP systolic 114–147; BP diastolic 63–84
--- NOTE | 2020-02-18 | NUR ---
PATIENT NONCOMPLIANT WITH OUTPUT AFTER EDUCATION PATIENT STILL NOT CALLING TO INFORM OUTPUT AMOUNTS. PATIENT INSTRUCTED TO CALL AFTER VOID TO BE MEASURED. PATIENT VERBALIZED UNDERSTANDING.
[2020-02-18] MEDS: MORPHINE SULF INJ 2 MG/ML SYRINGE 1ML IV PRN ×5 (00:14→22:33)
[2020-02-18] MEDS: SODIUM CHLORIDE 0.9% 1,000 ML IV SCH ×2 (05:52→17:25)
[2020-02-18] MEDS: SODIUM BICARBONATE 650 MG TAB PO SCH ×4 (05:52→22:30)
--- NOTE | 2020-02-18 05:58 | NUR ---
PATIENT VOIDED AND HAT EMPTIED PATIENT TOTAL OUTPUT MEASURED AT THIS TIME FROM BETWEEN MIDNIGHT AND NOW IS 500 ML. PATIENT HAS BEEN NPO AND NO ORAL INPUT NOTED AT THIS TIME. PATIENT HAS RECEIVED APPROXIMATELY 450 INPUT THROUGH IV MEDICATION. WILL CONTINUE TO MONITOR.
[2020-02-18] MEDS ORDERED: SODIUM CHL 0.9% 1000 ML BAG XX ONE (07:00)
--- NOTE | 2020-02-18 07:30 | NUR ---
OPENING SHIFT NOTE ASSUMED CARE OF PATIENT FROM LINER INSTALLER RN SOL. PATIENT IS AWAKE, ALERT, AND ORIENTED X4. PATIENT HAS NO S/S OF DISTRESS/SOB OR PAIN. INSTRUCTED PATIENT ON POC, PATIENT VERBALIZED UNDERSTANDING. BED IS IN LOWEST POSITION WITH SIDE RAILS RAISED X2, BED WHEELS LOCKED, AND CALL LIGHT IS WITHIN REACH. WILL CONTINUE TO MONITOR.
[2020-02-18 08:01] LABS: Basophils # (auto) 0 10 ^3/uL (0-0.2); Eosinophils # (auto) 0 10 ^3/uL (0-0.8); Hemoglobin 7.6 g/dL (12.2-16.2); Lymphocytes # (auto) 0.6 10 ^3/uL (0.4-5.4); Monocytes # (auto) 0.6 10 ^3/uL (0-1.3); Red Cell Distribution Width 13.3 % (11.8-14.3)
[2020-02-18 08:03] LABS: Basophils % (auto) 0.1 % (0.0-2.0); Hematocrit 22.3 % (36.0-46.0); Lymphocytes % (auto) 11.4 % (10.0-50.0); Mean Corpuscular Hgb Conc. 33.8 g/dL (32.0-36.0); Mean Corpuscular Volume 91.8 fL (80.0-100.0); Monocytes % (auto) 11.5 % (0.0-12.0); Neutrophils # (auto) 3.9 10 ^3/uL (1.6-8.6); Nucleated Red Blood Cells % 0.1 %; Platelet Count (auto) 100 10^3/uL (140-450); Red Blood Cells 2.43 10^6/uL (4.0-5.20); White Blood Cell 5.1 10^3/uL (4.4-10.8)
[2020-02-18 08:18] LABS: BUN/Creatinine Ratio 17.4; Calcium 7.1 mg/dL (8.5-10.1); Magnesium 2.1 mg/dL (1.6-2.6); Potassium 4.5 mmol/L (3.5-5.1)
[2020-02-18 08:20] LABS: % Iron Saturation 64.5 % (15-50)
[2020-02-18 08:46] LABS: Hepatitis B Surface Antibody Positive
--- NOTE | 2020-02-18 09:15 | NUR ---
DR. CASTELLANOS AT BEDSIDE UPDATED MD ON PATIENT'S STATUS, MD IS AWARE. MD EDUCATED PATIENT ON THE TUNNEL CATHETER FOR DIALYSIS. PATIENT VERBALIZED UNDERSTANDING. INFORMED MD RADIOLOGY WONT BE ABLE TO DO TUNNEL CATH TODAY AND PER TICKET MARKER CONSTANCE IT WILL BE DONE TOMORROW, MD IS AWARE.
[2020-02-18 09:33] LABS: Hepatitis A Ab IgM Negative; Hepatitis B Core IgM Negative; Hepatitis B Surface Antigen Negative (Negative)
[2020-02-18] MEDS: PANTOPRAZOLE 40 MG TAB PO SCH (09:52)
[2020-02-18] MEDS: MYCOPHENOLATE 500 MG TAB PO SCH ×2 (09:52→22:30)
[2020-02-18] MEDS: methylPREDNISolone SOD SUCC 40 MG/ML VL IV SCH ×2 (09:52→22:30)
[2020-02-18] MEDS: PROMETHAZINE HCL 25 MG/ML 1ML IV PRN ×2 (09:53→17:24)
--- NOTE | 2020-02-18 13:50 | NUR ---
Respiratory note: PATIENT SEEN FOR PRN MED-NEB TX. SHE HAD I&E WHEEZES IN BILATERAL UPPER LOBES; MED-NEB INDICATED AND ADMINISTERED AT THIS TIME.
[2020-02-18] MEDS: ALBUTEROL SULF 2.5 MG/0.5ML(0.5%) NEB SOLN NEB PRN ×2 (13:51→23:33)
[2020-02-18] MEDS: IPRATROPIUM BROM 0.5 MG/2.5ML INH SOL NEB PRN ×2 (13:51→23:33)
--- NOTE | 2020-02-18 15:02 | NUR ---
Nutrition Assessment Notes please see attached link for complete assessment Est. Needs BW (71 kg): 8982-7577 kcal (23-25 kcal/kgBW), 56-71 gms pro (0.8-1.0 gms/kgBW elev RFT). Will continue to monitor pertinent labs and reassess nutrient need prn. will reassess if pt on HD Addendum: 02/18/20 at [address] Amended: Links added.
[2020-02-18] MEDS ORDERED: LORazepam 2MG/ML-1ML VIAL IV PRN (18:15)
--- NOTE | 2020-02-18 18:58 | NUR ---
CLOSING SHIFT NOTE ENDORSED CARE TO WOOD FINISHER APPRENTICE SAWYER MINOR. PATIENT HAS NO S/S OF DISTRESS/SOB OR PAIN AT THIS TIME. Addendum: 02/18/20 at 1903 by Renetta Dee RN RN WOOD FINISHER APPRENTICE SAWYER KOWALSKI
--- NOTE | 2020-02-18 20:00 | NUR ---
Opening Shift Note Assumed care of patient, awake and alert. No S/S of distress/SOB. Patient reminded of NPO after midnight. Instructed on POC and to call for assist PRN, will continue to monitor for changes Q1hr and PRN.
[2020-02-18] MEDS ORDERED: EPOETIN ALFA 10,000 UNIT/1 ML VIAL SC ONE (21:00)
--- NOTE | 2020-02-18 22:33 | NUR ---
Pain Patient complained of pain 6/10 all over body. Pain medication PRN administered.
--- NOTE | 2020-02-18 23:03 | NUR ---
RE Pain Patient stated "I feel better pain 11/26"
[2020-02-19 05:00] VITALS: BP 147/85
[2020-02-19] MEDS: SODIUM BICARBONATE 650 MG TAB PO SCH ×4 (05:03→20:56)
[2020-02-19] MEDS: MORPHINE SULF INJ 2 MG/ML SYRINGE 1ML IV PRN ×4 (05:04→21:35)
--- NOTE | 2020-02-19 05:04 | NUR ---
Pain Patient complained of pain 6/10 in pain scale, pain medication administered PRN.
--- NOTE | 2020-02-19 05:34 | NUR ---
RE Pain Patient sleeping
[2020-02-19 05:58] LABS: Basophils # (auto) 0 10 ^3/uL (0-0.2); Basophils % (auto) 0.1 % (0.0-2.0); Eosinophils # (auto) 0 10 ^3/uL (0-0.8); Hematocrit 26.5 % (36.0-46.0); Hemoglobin 8.8 g/dL (12.2-16.2); Lymphocytes # (auto) 0.5 10 ^3/uL (0.4-5.4); Lymphocytes % (auto) 8.2 % (10.0-50.0); Mean Corpuscular Hemoglobin 31.7 pg (28.0-32.0); Mean Corpuscular Hgb Conc. 33.4 g/dL (32.0-36.0); Mean Corpuscular Volume 94.7 fL (80.0-100.0); Monocytes # (auto) 0.3 10 ^3/uL (0-1.3); Monocytes % (auto) 4.9 % (0.0-12.0); Neutrophils # (auto) 5.7 10 ^3/uL (1.6-8.6); Neutrophils % (auto) 86.8 % (37.0-80.0); Nucleated Red Blood Cells % 0.2 %; Platelet Count (auto) 109 10^3/uL (140-450); Red Cell Distribution Width 13.1 % (11.8-14.3); White Blood Cell 6.6 10^3/uL (4.4-10.8)
[2020-02-19 06:06] LABS: Calcium 7.5 mg/dL (8.5-10.1); Potassium 4.6 mmol/L (3.5-5.1)
[2020-02-19 06:07] LABS: INR 0.96 (0.9-1.15); Partial Thromboplastin Time 23.8 sec (23.64-32.05)
[2020-02-19 06:12] LABS: BUN/Creatinine Ratio 20.5
--- NOTE | 2020-02-19 06:21 | NUR ---
Critical Lab Critical Lab BUN 83, patient will have dialysis today. Will page hospitalist.
--- NOTE | 2020-02-19 07:29 | NUR ---
Closing Note Endorsed care to day shift nurse.
[2020-02-19] MEDS: SODIUM CHLORIDE 0.9% 1,000 ML IV SCH (08:25)
[2020-02-19 09:00] VITALS: BP 147/90
--- NOTE | 2020-02-19 09:05 | NUR ---
Patient taken to Diagnostic Technician via bed for tunnel catheter placement as per order.
[2020-02-19] MEDS ORDERED: HEPARIN SODIUM (PORCINE) 5000 UNITS/ML 1ML VIAL ONE ×2 (09:23→15:02)
[2020-02-19] MEDS ORDERED: fentaNYL CITRATE 100 MCG/2 ML VL ONE (09:24)
[2020-02-19] MEDS ORDERED: MIDAZOLAM HCL 1MG/1ML-2 ML VIAL ONE (09:24)
[2020-02-19] MEDS ORDERED: LIDOCAINE 2%HCL (LOCAL ANESTH.) INJ 20ML MDV ONE (09:24)
--- NOTE | 2020-02-19 09:52 | NUR ---
Dr. Barragan at station rounding. Patient still off unit. Per MD patient to be dialysed post catheter placement.
[2020-02-19] MEDS: methylPREDNISolone SOD SUCC 40 MG/ML VL IV SCH ×2 (10:00→20:56)
[2020-02-19] MEDS: MYCOPHENOLATE 500 MG TAB PO SCH ×2 (10:00→20:59)
--- NOTE | 2020-02-19 10:00 | NUR ---
HOLD P.T. TODAY BECAUSE PATIENT WENT DOWN FOR PROCEDURE.
--- NOTE | 2020-02-19 11:06 | NUR ---
Dr. Mccabe at station rounding. Patient still off unit. Per MD she will round again later.
--- NOTE | 2020-02-19 11:45 | NUR ---
Patient back in room. S/P tunnel catheter placement by Dr. Travis. Patient c/o 10/10 pain localizes to abdomen and also neck pain. Patient medicated by industrial laborer RN at 11:25. prn not due. HD RN at bed side, patient refusing to continue with any intervention until MD smith. Will page MD maya.
[2020-02-19] MEDS: PANTOPRAZOLE 40 MG TAB PO SCH (12:02)
--- NOTE | 2020-02-19 12:04 | NUR ---
Nuc YellowBrck tech at bed side for VQ scan. Patient refusing care at this time.
--- NOTE | 2020-02-19 12:06 | NUR ---
MD Eliot smith. Will await call back.
--- NOTE | 2020-02-19 12:10 | NUR ---
New orders received. Will carry out.
[2020-02-19 12:53] VITALS: BP 138/85
[2020-02-19] MEDS ORDERED: LORazepam 2MG/ML-1ML VIAL ONE (15:49)
[2020-02-19 17:00] VITALS: BP 151/90
[2020-02-19] MEDS: SUCRALFATE 1 GM TAB PO SCH ×2 (17:00→20:57)
--- NOTE | 2020-02-19 18:35 | NUR ---
Dr Franco at bed side discussing brain MRI results with patient.
--- NOTE | 2020-02-19 19:50 | NUR ---
Opening Shift Note Assumed care of patient, awake and alert, oriented x 4, clear speech, follows directions. On room air with even and unlabored respirations, no S/S of distress or SOB. Patient turns independently and ambulates with steady gait. Left upper ar midline intact and patent. Noted right chest tunnel cath dressing CDI. Bed in lowest locked position with side rails up x 2 and call light within reach. Instructed on POC and to call for assist PRN, will continue to monitor for changes Q1hr and PRN.
[2020-02-19] MEDS ORDERED: ENOXAPARIN SOD 30 MG/0.3 ML SYRINGE SC ONE (20:15)
[2020-02-19] MEDS ORDERED: ASPirin 325 MG TAB PO ONE (20:15)
[2020-02-19] MEDS: ATORVASTATIN 20 MG TAB PO SCH (20:57)
[2020-02-19] MEDS: PROMETHAZINE HCL 25 MG/ML 1ML IV PRN (21:35)
[2020-02-19] MEDS: ALBUTEROL SULF 2.5 MG/0.5ML(0.5%) NEB SOLN NEB PRN (21:45)
[2020-02-19] MEDS: IPRATROPIUM BROM 0.5 MG/2.5ML INH SOL NEB PRN (21:45)
[2020-02-19 22:00] VITALS: BP 137/78
[2020-02-20 02:21] VITALS: BP 137/78
[2020-02-20] MEDS: MORPHINE SULF INJ 2 MG/ML SYRINGE 1ML IV PRN ×5 (04:18→21:07)
[2020-02-20 05:00] VITALS: BP 133/72
[2020-02-20] MEDS: SODIUM BICARBONATE 650 MG TAB PO SCH (05:49)
[2020-02-20] MEDS: SUCRALFATE 1 GM TAB PO SCH ×4 (05:50→20:40)
[2020-02-20] MEDS: ALBUTEROL SULF 2.5 MG/0.5ML(0.5%) NEB SOLN NEB PRN (06:23)
[2020-02-20] MEDS: IPRATROPIUM BROM 0.5 MG/2.5ML INH SOL NEB PRN (06:23)
[2020-02-20 06:34] LABS: Potassium 4.1 mmol/L (3.5-5.1)
[2020-02-20 06:44] LABS: BUN/Creatinine Ratio 18.3; Calcium 7.3 mg/dL (8.5-10.1)
--- NOTE | 2020-02-20 07:15 | NUR ---
Closing Note patient awake sitting in bed with even and unlabored respirations, no s/s of distress. Endorsed care to dayshift SAWYER Cooper.
[2020-02-20] MEDS ORDERED: SODIUM CHL 0.9% 1000 ML BAG XX ONE (08:00)
[2020-02-20 09:00] VITALS: BP 139/71
[2020-02-20] MEDS: ASPirin 81 mg TAB PO SCH (09:13)
[2020-02-20] MEDS: methylPREDNISolone SOD SUCC 40 MG/ML VL IV SCH ×2 (09:13→20:40)
[2020-02-20] MEDS: PANTOPRAZOLE 40 MG TAB PO SCH (09:13)
[2020-02-20] MEDS: MYCOPHENOLATE 500 MG TAB PO SCH ×2 (10:00→20:43)
[2020-02-20] MEDS ORDERED: COLCHICINE 0.6 MG CAP PO ONE (11:15)
--- NOTE | 2020-02-20 11:15 | NUR ---
HD RN at bed side for treatment
--- NOTE | 2020-02-20 11:38 | NUR ---
Attempted PT eval, pt is currently receiving dialysis. Will attempt later.
--- NOTE | 2020-02-20 11:49 | NUR ---
Per request call out to Ramos Anand (boyfriend) at [phone] to update on latest POC. No answer at this time, detailed voicemail left with extension # to be reached at.
[2020-02-20 13:00] VITALS: BP 160/83
[2020-02-20] MEDS ORDERED: LORazepam 2MG/ML-1ML VIAL IV ONE (14:15)
--- NOTE | 2020-02-20 15:01 | NUR ---
Patient off unit to radiology for MRI. Per respiratory tech, they will be doing echo as soon as done with MRI, all of unit.
--- NOTE | 2020-02-20 15:45 | NUR ---
Re repeat ECHO order Call out to extension [phone] to inquire about pending echo order. Per tech, repeat echo on hold d/t another active order for JOCELIN evaluation by cardiology. Will inform MD Mccabe.
[2020-02-20 17:00] VITALS: BP_SYST 136; BP_SYST 96; BP_DIAS 50; BP_DIAS 75
[2020-02-20] MEDS ORDERED: ENOXAPARIN SOD 30 MG/0.3 ML SYRINGE SC SCH (18:00)
--- NOTE | 2020-02-20 18:55 | NUR ---
MD Franco at bed side, discussing POC with pt. Patient verbalizes understanding.
[2020-02-20] MEDS ORDERED: LOSARTAN POTASSIUM 50 MG TAB PO ONE (19:45)
--- NOTE | 2020-02-20 19:55 | NUR ---
Opening Shift Note Assumed care of patient, awake and alert, oriented x 4, clear speech, follows directions. On room air with even and unlabored respirations, no S/S of distress or SOB. Patient turns independently and ambulates with steady gait. Left upper arm midline intact and patent. Noted right chest tunnel cath dressing CDI. Bed in lowest locked position with side rails up x 2 and call light within reach. Instructed on POC and to call for assist PRN, will continue to monitor for changes Q1hr and PRN.
[2020-02-20] MEDS: COLCHICINE 0.6 MG CAP PO SCH (20:40)
[2020-02-20] MEDS: ATORVASTATIN 20 MG TAB PO SCH (20:40)
[2020-02-20] MEDS ORDERED: EPOETIN ALFA 10,000 UNIT/1 ML VIAL SC ONE (21:00)
[2020-02-20 22:00] VITALS: BP 136/76
[2020-02-21] VITALS (8 sets, daily range): BP systolic 118–159; BP diastolic 56–93
[2020-02-21] MEDS: MORPHINE SULF INJ 2 MG/ML SYRINGE 1ML IV PRN ×4 (06:09→20:53)
[2020-02-21] MEDS: SUCRALFATE 1 GM TAB PO SCH ×4 (06:09→22:25)
--- NOTE | 2020-02-21 07:05 | NUR ---
Closing Note patient resting in bed with even and unlabored respirations, no s/s of distress. Endorsed care to dayshift RN.
--- NOTE | 2020-02-21 07:12 | NUR ---
Respiratory note: PT RESTING COMFORTABLY. NO RESPIRATORY DISTRESS NOTED. SPO2 98% ON RA, HR 84, RR 18, BS CLEAR BILATERALLY. PRN MEDNEB TX NOT INDICATED. PT INFORMED TO PUSH CALL BUTTON IF INCREASE WOB, SOB, OR WHEEZING OCCURS.
[2020-02-21 09:54] LABS: Hematocrit 19.7 % (36.0-46.0); Mean Corpuscular Hgb Conc. 33.4 g/dL (32.0-36.0); Platelet Count (auto) 37 10^3/uL (140-450)
[2020-02-21 09:55] LABS: Mean Corpuscular Hemoglobin 31.2 pg (28.0-32.0); Mean Corpuscular Volume 93.7 fL (80.0-100.0); Red Cell Distribution Width 13.2 % (11.8-14.3); White Blood Cell 7.4 10^3/uL (4.4-10.8)
[2020-02-21] MEDS: IPRATROPIUM BROM 0.5 MG/2.5ML INH SOL NEB PRN ×3 (09:55→18:30)
[2020-02-21] MEDS: ALBUTEROL SULF 2.5 MG/0.5ML(0.5%) NEB SOLN NEB PRN ×3 (09:55→18:30)
--- NOTE | 2020-02-21 09:55 | NUR ---
Respiratory note: PAGED TO PT ROOM FOR PRN MEDNEB TX. PT WAS IN NO RESPIRATORY DISTRESS. SPO2 99% ON RA, HR 87, RR 18, BS CLEAR BILATERALLY. I ASKED PT IF SHE FELT SHE WAS IN NEED OF HER MEDNEB TX? PT STATED THAT HER WHOLE BODY JUST FEELS BETTER WHEN SHE TAKES HER MEDNEB TX, ALTHOUGH SHE ONLY TAKES AN INHALER AT HOME. SHE STATED THAT "THE DR ORDERED HER TO TAKE IT WHENEVER SHE WANTS IT SO THAT'S WHAT SHE WANTS." I SAID OK NO PROBLEM AT ALL. MEDNEB TX WAS GIVEN, WITH NO ADVERSE EFFECTS NOTED. SAWYER CHOW MADE AWARE.
[2020-02-21 10:01] LABS: Hemoglobin 6.6 g/dL (12.2-16.2)
[2020-02-21 10:09] LABS: Basophils % (manual) 0 (0.0-2.0); Blast Cells 0; Metamyelocytes % 0; Myelocytes % 0; Promyelocytes % 0; Reactive Lymphocytes 0
--- NOTE | 2020-02-21 10:13 | NUR ---
DR. ANGULO PAGED FOR HGB VALUE REPORTING.
[2020-02-21 10:23] LABS: Band Neutrophils % (manual) 2; Eosinophils % (manual) 1 (0-7); Lymphocytes % (manual) 12 (10.0-50.0); Monocytes % (manual) 6 (0-12)
[2020-02-21] MEDS: LOSARTAN POTASSIUM 50 MG TAB PO SCH (10:25)
[2020-02-21] MEDS: methylPREDNISolone SOD SUCC 40 MG/ML VL IV SCH ×3 (10:25→22:25)
[2020-02-21] MEDS: PANTOPRAZOLE 40 MG TAB PO SCH (10:26)
[2020-02-21] MEDS: COLCHICINE 0.6 MG CAP PO SCH (10:26)
[2020-02-21] MEDS: MYCOPHENOLATE 500 MG TAB PO SCH ×2 (10:26→22:26)
[2020-02-21] MEDS: ASPirin 81 mg TAB PO SCH (10:26)
[2020-02-21 11:07] LABS: Anion Gap 10 (5-15); BUN/Creatinine Ratio 13.9; Blood Urea Nitrogen 37 mg/dL (7-18); Calcium 7.1 mg/dL (8.5-10.1); Carbon Dioxide 24 mmol/L (21-32); Chloride 104 mmol/L (98-107); GFR African American 25 mL/min; GFR Non-African American 21 mL/min; Glucose 118 mg/dL (74-106); Potassium 3.5 mmol/L (3.5-5.1); Sodium 138 mmol/L (136-145); Uric Acid 5.7 mg/dL (2.6-6.0)
--- NOTE | 2020-02-21 11:29 | NUR ---
PER MD TO ORDER I UNIT OF PRBC.
--- NOTE | 2020-02-21 11:34 | NUR ---
DR. MESSER CONATCTED AND MESSAGE LEFT WITH OFFICE RISK AND COMPLIANCE ANALYTICS DIRECTOR JALIL. HGB:6.6; PLT: 37
--- NOTE | 2020-02-21 11:40 | NUR ---
BLOOD TRANSFUSION EDUCATION PROVIDED TO PT.
--- NOTE | 2020-02-21 14:15 | NUR ---
BLOOD TRANSFUSION INITIATED, PT TOLERATING WELL AT MOMENT
--- NOTE | 2020-02-21 14:45 | NUR ---
HOLD P.T. TODAY. PT IS RECEIVING BLOOD TRANSFUSION.
[2020-02-21] MEDS ORDERED: FUROSEMIDE 100 MG/10ML VIAL IV ONE (16:30)
--- NOTE | 2020-02-21 16:31 | NUR ---
POST TRANSFUSION V/S: 98.9; 60; 18; 100% ON ROOM AIR; 159/95 DR. ANGULO MADE AWARE OF BLOOD PRESSURE. TO INPUT ORDERS.
--- NOTE | 2020-02-21 17:22 | NUR ---
Dr. lockhart into see pt. Plan of care discussed.
--- NOTE | 2020-02-21 19:29 | NUR ---
Opening Shift Note Assumed care of patient, awake and alert x 4. No S/S of distress/SOB. Bed is in lowest position and locked. Call light within reach. Board updated. Tele box number matches monitor and leads are in correct placement. Instructed on POC and to call for assist PRN, will continue to monitor for changes Q1hr and PRN.
--- NOTE | 2020-02-21 21:30 | NUR ---
pain reassessment patient reports pain 9 out of 10 and that was not relieved by morphine. Patient refused the attempt to call to MD for a prescription for other pain med. Cold packs were offered and given to patient, which is what patient requested.
[2020-02-21] MEDS: ATORVASTATIN 20 MG TAB PO SCH (22:26)
[2020-02-22] VITALS (7 sets, daily range): BP systolic 124–155; BP diastolic 64–84
[2020-02-22] MEDS: PROMETHAZINE HCL 25 MG/ML 1ML IV PRN (02:00)
[2020-02-22] MEDS: MORPHINE SULF INJ 2 MG/ML SYRINGE 1ML IV PRN ×4 (02:00→20:30)
[2020-02-22] MEDS: ALBUTEROL SULF 2.5 MG/0.5ML(0.5%) NEB SOLN NEB PRN (05:55)
[2020-02-22] MEDS: IPRATROPIUM BROM 0.5 MG/2.5ML INH SOL NEB PRN ×2 (05:55→19:13)
[2020-02-22] MEDS: SUCRALFATE 1 GM TAB PO SCH ×4 (06:15→22:26)
[2020-02-22] MEDS: methylPREDNISolone SOD SUCC 40 MG/ML VL IV SCH ×3 (06:16→22:25)
[2020-02-22] MEDS ORDERED: SODIUM CHL 0.9% 1000 ML BAG XX ONE (07:00)
[2020-02-22 07:05] LABS: Hemoglobin 8.3 g/dL (12.2-16.2)
[2020-02-22 07:08] LABS: Hematocrit 24.8 % (36.0-46.0); Mean Corpuscular Hemoglobin 30.9 pg (28.0-32.0); Mean Corpuscular Hgb Conc. 33.5 g/dL (32.0-36.0); Mean Corpuscular Volume 92.4 fL (80.0-100.0); Platelet Count (auto) 48 10^3/uL (140-450); Red Blood Cells 2.68 10^6/uL (4.0-5.20); Red Cell Distribution Width 12.9 % (11.8-14.3); White Blood Cell 8.7 10^3/uL (4.4-10.8)
[2020-02-22 07:11] LABS: Basophils % (manual) 0 (0.0-2.0); Blast Cells 0; Eosinophils % (manual) 0 (0-7); Myelocytes % 0; Promyelocytes % 0; Reactive Lymphocytes 0
[2020-02-22 07:25] LABS: BUN/Creatinine Ratio 18.1; Potassium 3.9 mmol/L (3.5-5.1)
[2020-02-22 07:26] LABS: Calcium 7.5 mg/dL (8.5-10.1)
[2020-02-22 07:28] LABS: % Iron Saturation 26.6 % (15-50)
[2020-02-22] MEDS ORDERED: HYDROmorphone HCL 2 MG/ML VL IV PRN (07:30)
[2020-02-22 07:35] LABS: Band Neutrophils % (manual) 3; Lymphocytes % (manual) 8 (10.0-50.0); Metamyelocytes % 1; Monocytes % (manual) 6 (0-12)
--- NOTE | 2020-02-22 10:09 | NUR ---
assessment Patient is a 44 year old female who is alert and oriented. I tried to do my assessment with patient and she informed me she does not need social service and has no needs. Patient does not want to talk to social service. Carlos JACQUES notified. Addendum: 02/22/20 at 1013 by Kristin CASTELLON Amended: Links added.
[2020-02-22] MEDS: LOSARTAN POTASSIUM 50 MG TAB PO SCH (10:45)
[2020-02-22] MEDS: PANTOPRAZOLE 40 MG TAB PO SCH (10:45)
[2020-02-22] MEDS: MYCOPHENOLATE 500 MG TAB PO SCH ×2 (10:45→22:26)
--- NOTE | 2020-02-22 13:37 | NUR ---
PATHOLOGY CALLED REGARDING KIDNEY BIOPSY REPORT. CATALINA TO SEND REPORT TO UNIT.
[2020-02-22] MEDS ORDERED: IRON SUCROSE COMPLEX 200 MG in SODIUM CHL 0.9% 100 ML IV ONE (18:00)
--- NOTE | 2020-02-22 19:23 | NUR ---
Opening Shift Note Assumed care of patient. Patient is awake, alert, and oriented X 4. No S/S of respiratory distress/SOB. Pain is reported and will be addressed per Dr's order. Patient is resting in bed. Bed in lower position, brakes are locked, side rails up x2, call light within reach. Midline is asymptomatic and patent. POC is discussed and patient instructed to call for assistance PRN. Will continue to monitor for changes Q1hr and PRN.
[2020-02-22] MEDS ORDERED: EPOETIN ALFA 10,000 UNIT/1 ML VIAL SC ONE (21:00)
--- NOTE | 2020-02-22 21:59 | NUR ---
Paging hospitalist because patient is reporting pain 7 out of 10 from a 9 out of 10. Pain is relate to lupus. Morphine 2 mg IV given, which is strongest pain medication available. Patient is visibly agitated and states the pain is bearable for 90 minutes and then rises to 9 out of 10 for the following 2 and 1/2 hours. Patient wants to know if stronger medication is available.
[2020-02-22] MEDS: ATORVASTATIN 20 MG TAB PO SCH (22:25)
--- NOTE | 2020-02-22 22:42 | NUR ---
Reported to MD Baldwin the pain that she has been experiencing and a new event: Patient began having an intractable nose bleed at approximately 2220 that is quite copious and has not stopped. I am concerned because patient has low platelet count and Hemoglobin/hematocrit count. Orders received: 1) Morphine 4 mg IV q 4 hrs PRN severe pain (7-10), 2) discontinue all anti-coagulant medications (Lovenox), 3) give patient ice pack for nose, 4) notify MD if bleeding does not stop shortly.
[2020-02-22] MEDS: MORPHINE SULFATE 4 MG/ML SYR/VIAL IV PRN (23:21)
[2020-02-23 01:47] VITALS: BP 141/81
[2020-02-23] MEDS: IPRATROPIUM BROM 0.5 MG/2.5ML INH SOL NEB PRN ×2 (03:24→09:51)
[2020-02-23 05:01] VITALS: BP 135/77
[2020-02-23] MEDS: methylPREDNISolone SOD SUCC 40 MG/ML VL IV SCH ×3 (06:12→21:38)
[2020-02-23] MEDS: SUCRALFATE 1 GM TAB PO SCH ×4 (06:12→21:38)
[2020-02-23] MEDS: MORPHINE SULFATE 4 MG/ML SYR/VIAL IV PRN ×3 (06:13→21:39)
--- NOTE | 2020-02-23 07:45 | NUR ---
OPENING SHIFT NOTE: PATIENT ASLEEP RESTING IN BED. EASILY AWOKEN A/OX4. UPDATED ON PLAN OF CARE, PATIENT VERBALIZED UNDERSTANDING. RESPIRATIONS EVEN AND UNLABORED, PATIENT PASSIVE IN MORNING ASSESSMENT. CALL LIGHT PLACED WITHIN REACH, WILL CONTINUE TO MONITOR.
[2020-02-23 09:00] VITALS: BP 144/70
[2020-02-23] MEDS: MYCOPHENOLATE 500 MG TAB PO SCH ×2 (09:42→21:38)
[2020-02-23] MEDS: LOSARTAN POTASSIUM 50 MG TAB PO SCH (09:42)
[2020-02-23] MEDS: PANTOPRAZOLE 40 MG TAB PO SCH (09:42)
[2020-02-23] MEDS: PROMETHAZINE HCL 25 MG/ML 1ML IV PRN (11:39)
[2020-02-23] MEDS: ALBUTEROL SULF 2.5 MG/0.5ML(0.5%) NEB SOLN NEB SCH ×2 (12:06→18:35)
[2020-02-23] MEDS: IPRATROPIUM BROM 0.5 MG/2.5ML INH SOL NEB SCH ×2 (12:06→18:35)
[2020-02-23] MEDS: IRON SUCROSE COMPLEX 200 MG in SODIUM CHL 0.9% 100 ML IV SCH (12:15)
[2020-02-23 13:00] VITALS: BP 175/77
[2020-02-23 14:19] LABS: Basophils # (auto) 0 10 ^3/uL (0-0.2); Basophils % (auto) 0.1 % (0.0-2.0); Eosinophils # (auto) 0 10 ^3/uL (0-0.8); Hematocrit 25.8 % (36.0-46.0); Hemoglobin 8.5 g/dL (12.2-16.2); Lymphocytes # (auto) 0.8 10 ^3/uL (0.4-5.4); Lymphocytes % (auto) 5.9 % (10.0-50.0); Mean Corpuscular Hemoglobin 30.7 pg (28.0-32.0); Monocytes # (auto) 0.6 10 ^3/uL (0-1.3); Monocytes % (auto) 4.5 % (0.0-12.0); Neutrophils # (auto) 12.7 10 ^3/uL (1.6-8.6); Neutrophils % (auto) 89.5 % (37.0-80.0); Nucleated Red Blood Cells % 0.3 %; Platelet Count (auto) 67 10^3/uL (140-450); Red Blood Cells 2.78 10^6/uL (4.0-5.20); Red Cell Distribution Width 13.1 % (11.8-14.3); White Blood Cell 14.2 10^3/uL (4.4-10.8)
--- NOTE | 2020-02-23 14:50 | NUR ---
BP RE-ASSESSED 175/77 BP OBTAINED FOR NOON VITALS. RE-ASSESSED BY THIS RN, 153/76. NO C/O PAIN AT THIS TIME.
--- NOTE | 2020-02-23 15:30 | NUR ---
DR. ADAN BOYER.
--- NOTE | 2020-02-23 15:50 | NUR ---
Nutrition Followup Notes Pt wt is 80.8 kg Pt appetite is good aeb 100% x3 PO intake per RN doc. Pt with no distress or complaints. Noted HD orders in process. Will continue to closely monitor pertinent labs, PO intake and skin status prn. Will followup in 2-3 days Est. Needs BW (71 kg): 7611-9267 kcal (23-25 kcal/kgBW), 56-71 gms pro (0.8-1.0 gms/kgBW elev RFT). Will continue to monitor pertinent labs and reassess nutrient need prn. will reassess if pt on HD LABS: BUN 47 H, CR 2.6 H, GFR 21 L, ALB 1.1 L GI: Pt last BM noted on 02/21 per RN doc. BS: 21 low risk, no wounds. Please refer to wound assessment report for full details. PES: Problem Altered nutrition related lab values r.t current chronic medical condition aeb elev RFT hyperglycemia Comments 1) consider renal specific 70 gm protein 2 gm na diet if RFT continue to elev and pt not on HD 2) refer to [employer] dietitian on DC 3) continue current plan of care
[2020-02-23 17:00] VITALS: BP 143/80
--- NOTE | 2020-02-23 19:00 | NUR ---
CARE ENDORSED TO TI JACQUES.
--- NOTE | 2020-02-23 19:40 | NUR ---
Opening Shift Note Assumed care of patient, awake, AAOx4. No S/S of distress/SOB. On room air and moderate assist. Bed in lowest locked position, side rails up x2, call light within reach. Instructed on POC and to call for assist PRN, will continue to monitor for changes Q1hr and PRN.
[2020-02-23] MEDS: ATORVASTATIN 20 MG TAB PO SCH (21:38)
[2020-02-23 22:00] VITALS: BP 121/71
[2020-02-24] MEDS: MORPHINE SULFATE 4 MG/ML SYR/VIAL IV PRN ×3 (02:33→20:30)
[2020-02-24 05:00] VITALS: BP 150/87
[2020-02-24] MEDS: methylPREDNISolone SOD SUCC 40 MG/ML VL IV SCH ×2 (05:52→14:27)
[2020-02-24] MEDS: SUCRALFATE 1 GM TAB PO SCH ×4 (06:15→21:57)
[2020-02-24] MEDS: ALBUTEROL SULF 2.5 MG/0.5ML(0.5%) NEB SOLN NEB SCH (06:33)
[2020-02-24] MEDS: IPRATROPIUM BROM 0.5 MG/2.5ML INH SOL NEB SCH ×3 (06:33→19:02)
--- NOTE | 2020-02-24 07:19 | NUR ---
OPENING SHIFT NOTE: PATIENT ASLEEP RESTING IN BED. EASILY AWOKEN A/OX4. UPDATED ON PLAN OF CARE, PATIENT VERBALIZED UNDERSTANDING. RESPIRATIONS EVEN AND UNLABORED. CALL LIGHT PLACED WITHIN REACH, WILL CONTINUE TO MONITOR.
[2020-02-24 09:00] VITALS: BP 148/71
[2020-02-24] MEDS: MYCOPHENOLATE 500 MG TAB PO SCH (10:04)
[2020-02-24] MEDS: LOSARTAN POTASSIUM 50 MG TAB PO SCH (10:04)
[2020-02-24] MEDS: PANTOPRAZOLE 40 MG TAB PO SCH (10:05)
--- NOTE | 2020-02-24 10:25 | NUR ---
PATIENT UP AMBULATING IN UNIT WITH PHYSICAL THERAPIST
[2020-02-24] MEDS ORDERED: COLCHICINE 0.6 MG CAP PO ONE (10:30)
[2020-02-24] MEDS: IRON SUCROSE COMPLEX 200 MG in SODIUM CHL 0.9% 100 ML IV SCH (12:14)
[2020-02-24] MEDS ORDERED: DOCUSATE SOD 100 MG CAP PO PRN ×2 (12:15→13:15)
[2020-02-24 17:00] VITALS: BP 153/91
[2020-02-24] MEDS: SODIUM CHLORIDE 0.9% 1,000 ML IV SCH (17:40)
--- NOTE | 2020-02-24 19:02 | NUR ---
CARE ENDORSED TO TI JACQUES.
--- NOTE | 2020-02-24 19:30 | NUR ---
Opening Shift Note Assumed care of patient, awake, AAOx4. No S/S of distress/SOB. On room air and ambulatory. Bed in lowest locked position, side rails up x2, call light within reach. Instructed on POC and to call for assist PRN, will continue to monitor for changes Q1hr and PRN.
[2020-02-24] MEDS: ATORVASTATIN 20 MG TAB PO SCH (21:57)
[2020-02-24] MEDS: methylPREDNISolone SOD SUCC 125 MG/2 ML VL IV SCH (21:57)
[2020-02-24 22:00] VITALS: BP 144/89
[2020-02-24] MEDS ORDERED: COLCHICINE 0.6 MG CAP PO SCH (22:00)
[2020-02-24] MEDS: HYDROCORTONE 1% TOPICAL CREAM 30 GM TUBE TOP SCH (22:00)
[2020-02-25] MEDS: MORPHINE SULFATE 4 MG/ML SYR/VIAL IV PRN ×4 (00:51→20:13)
[2020-02-25 04:46] VITALS: BP 129/74
[2020-02-25 05:44] LABS: Basophils # (auto) 0 10 ^3/uL (0-0.2); Basophils % (auto) 0.1 % (0.0-2.0); Eosinophils # (auto) 0 10 ^3/uL (0-0.8); Hematocrit 28.8 % (36.0-46.0); Hemoglobin 9.4 g/dL (12.2-16.2); Lymphocytes % (auto) 5.6 % (10.0-50.0); Mean Corpuscular Hemoglobin 31.3 pg (28.0-32.0); Mean Corpuscular Hgb Conc. 32.8 g/dL (32.0-36.0); Mean Corpuscular Volume 95.3 fL (80.0-100.0); Monocytes # (auto) 0.5 10 ^3/uL (0-1.3); Monocytes % (auto) 3.1 % (0.0-12.0); Neutrophils # (auto) 15.6 10 ^3/uL (1.6-8.6); Neutrophils % (auto) 91.2 % (37.0-80.0); Nucleated Red Blood Cells % 0.4 %; Platelet Count (auto) 75 10^3/uL (140-450); Red Blood Cells 3.02 10^6/uL (4.0-5.20); Red Cell Distribution Width 13.4 % (11.8-14.3); White Blood Cell 17.1 10^3/uL (4.4-10.8)
[2020-02-25] MEDS: methylPREDNISolone SOD SUCC 125 MG/2 ML VL IV SCH ×3 (06:05→22:15)
[2020-02-25] MEDS: SUCRALFATE 1 GM TAB PO SCH ×4 (06:05→22:14)
[2020-02-25 06:06] LABS: Calcium 7.8 mg/dL (8.5-10.1)
[2020-02-25] MEDS: PROMETHAZINE HCL 25 MG/ML 1ML IV PRN ×2 (06:06→12:04)
[2020-02-25 06:08] LABS: BUN/Creatinine Ratio 24.5
[2020-02-25] MEDS: IPRATROPIUM BROM 0.5 MG/2.5ML INH SOL NEB SCH ×3 (06:30→18:28)
--- NOTE | 2020-02-25 07:30 | NUR ---
RECEIVED REPORT FROM NIGHT NURSE. PATIENT RESTING IN BED, NO DISTRESS NOTED. WILL CONTINUE TO MONITOR.
[2020-02-25 08:00] VITALS: BP 167/84
--- NOTE | 2020-02-25 09:30 | NUR ---
DOCTOR UGI AT BEDSIDE. BONE MARROW BIOPSY PROCEDURE IN PROCESS. CONSENTS SIGNED, 1MG OF DILAUDID IV GIVEN PER ORDERS. WILL CONTINUE TO MONITOR.
--- NOTE | 2020-02-25 10:00 | NUR ---
SPECIMENS OBTAINED FROM BONE MARROW BIOPSY, LABELED AND SENT TO LAB. GAUZE AND TEGADERM PLACED OVER INCISION SITE. PATIENT TOLERATED THE PROCEDURE WELL, VITALS STABLE. WILL CONTINUE TO MONITOR.
[2020-02-25] MEDS: HYDROCORTONE 1% TOPICAL CREAM 30 GM TUBE TOP SCH (10:10)
[2020-02-25] MEDS: PANTOPRAZOLE 40 MG TAB PO SCH (10:10)
[2020-02-25] MEDS: LOSARTAN POTASSIUM 50 MG TAB PO SCH (10:10)
--- NOTE | 2020-02-25 10:11 | NUR ---
Patient refused PT. Diane Burden was notified. Addendum: 02/25/20 at 1012 by MAYLIN RMAEY PTT Amended: Links added.
[2020-02-25] MEDS ORDERED: amLODIPine BESYLATE 5 MG TAB PO ONE (11:00)
[2020-02-25] MEDS ORDERED: VANCOMYCIN PER PHARMACY 0 MG IV SCH (11:45)
[2020-02-25] MEDS: SODIUM CHLORIDE 0.9% 1,000 ML IV SCH (11:45)
[2020-02-25] MEDS: IRON SUCROSE COMPLEX 200 MG in SODIUM CHL 0.9% 100 ML IV SCH (11:45)
[2020-02-25 12:00] VITALS: BP 140/75
[2020-02-25] MEDS ORDERED: PIPERACILLIN-TAZOB 2.25GM 50 ML IV ONE (12:00)
--- NOTE | 2020-02-25 15:00 | NUR ---
MIDLine Dressing Changes MIDline dressing change done with a sterile technique. Cleansed with chloraprep scrub/betadine. Stat lock, and bio-patch as available. Occlusive dressing applied.
[2020-02-25] MEDS: PIPERACILLIN-TAZOB 3.375GM 100 ML IV SCH ×2 (15:34→22:15)
[2020-02-25 16:50] VITALS: BP 144/82
[2020-02-25] MEDS ORDERED: VANCOMYCIN 1GM/250ML 250 ML IV ONE (17:00)
--- NOTE | 2020-02-25 18:28 | NUR ---
Respiratory note: AT BEDSIDE FOR MED CARLOS COLLADO.
--- NOTE | 2020-02-25 19:20 | NUR ---
opening note pt A&Ox4. respirations even and nonlabored on room air. pt is ambulatory with assistance. pt has hemodialysis m/w/f. bed in low locked position, call light within reach.
[2020-02-25 22:00] VITALS: BP 124/67
[2020-02-25] MEDS: ATORVASTATIN 20 MG TAB PO SCH (22:14)
[2020-02-26] VITALS (7 sets, daily range): BP systolic 113–154; BP diastolic 59–98
[2020-02-26] MEDS: MORPHINE SULFATE 4 MG/ML SYR/VIAL IV PRN ×6 (03:09→23:20)
[2020-02-26] MEDS: IPRATROPIUM BROM 0.5 MG/2.5ML INH SOL NEB PRN (03:10)
--- NOTE | 2020-02-26 03:10 | NUR ---
Respiratory note: PAGED TO BEDSIDE BY RN TO ASSESS PT FOR PRN TX. TX GIVEN AT THIS TIME, POX 95-96% ON RA, HR IN 90S. BS HEARD ARE FINE COURSE WHEEZES AUDIBLE IN RUL AND RML DIM-CLEAR T/O OTHER LUNG JUDGE. RN JAQUAVIS AT BEDSIDE AND AWARE OF FINDINGS.
--- NOTE | 2020-02-26 03:18 | NUR ---
Respiratory note: POST MED NEB TX. IMPROVED AERATION HEARD T/O LUNG JUDGE. BS REMAIN SLIGHTLY COURSE T/O RIGHT MIDDLE LOBE. WILL NOTIFY RN. WILL CONTINUE TO MONITOR PT NEEDED.
[2020-02-26] MEDS: PIPERACILLIN-TAZOB 3.375GM 100 ML IV SCH ×3 (05:15→22:57)
[2020-02-26] MEDS: methylPREDNISolone SOD SUCC 125 MG/2 ML VL IV SCH (05:15)
[2020-02-26] MEDS: HYDROCORTONE 1% TOPICAL CREAM 30 GM TUBE TOP SCH ×3 (05:51→22:57)
[2020-02-26] MEDS: SUCRALFATE 1 GM TAB PO SCH ×4 (06:04→22:56)
[2020-02-26 06:12] LABS: Potassium 3.5 mmol/L (3.5-5.1)
[2020-02-26 06:21] LABS: Albumin 1.5 g/dL (3.4-5.0); BUN/Creatinine Ratio 26.9; Bilirubin, Total 0.3 mg/dL (0.2-1.0); Calcium 7.9 mg/dL (8.5-10.1); Phosphorus 2.5 mg/dL (2.5-4.90); Total Protein 5.8 g/dL (6.4-8.2)
[2020-02-26] MEDS: IPRATROPIUM BROM 0.5 MG/2.5ML INH SOL NEB SCH ×3 (06:21→19:38)
--- NOTE | 2020-02-26 07:25 | NUR ---
closing note pt resting in semi fowlers position with HOB at 30 degrees. respirations even and nonlabored on room air. pt is ambulatory. pt is A&Ox4. bed in low locked position, call light within reach.
[2020-02-26] MEDS: LOSARTAN POTASSIUM 50 MG TAB PO SCH (10:10)
[2020-02-26] MEDS: amLODIPine BESYLATE 5 MG TAB PO SCH (10:11)
[2020-02-26] MEDS: PANTOPRAZOLE 40 MG TAB PO SCH (10:12)
[2020-02-26] MEDS: PROMETHAZINE HCL 25 MG/ML 1ML IV PRN ×4 (10:25→23:20)
[2020-02-26] MEDS ORDERED: LIDOCAINE 2%HCL (LOCAL ANESTH.) INJ 20ML MDV ONE (11:28)
[2020-02-26] MEDS: IRON SUCROSE COMPLEX 200 MG in SODIUM CHL 0.9% 100 ML IV SCH (12:05)
[2020-02-26] MEDS ORDERED: VANCOMYCIN 1GM/250ML 250 ML IV ONE (13:00)
[2020-02-26 14:26] LABS: Basophils # (auto) 0 10 ^3/uL (0-0.2); Basophils % (auto) 0.1 % (0.0-2.0); Eosinophils # (auto) 0 10 ^3/uL (0-0.8); Eosinophils % (auto) 0.1 % (0.0-7.0); Hematocrit 27.8 % (36.0-46.0); Hemoglobin 9.2 g/dL (12.2-16.2); Lymphocytes # (auto) 0.8 10 ^3/uL (0.4-5.4); Lymphocytes % (auto) 4.6 % (10.0-50.0); Mean Corpuscular Hemoglobin 30.6 pg (28.0-32.0); Mean Corpuscular Volume 92.9 fL (80.0-100.0); Monocytes # (auto) 0.7 10 ^3/uL (0-1.3); Monocytes % (auto) 3.9 % (0.0-12.0); Neutrophils # (auto) 15.9 10 ^3/uL (1.6-8.6); Neutrophils % (auto) 91.3 % (37.0-80.0); Nucleated Red Blood Cells % 0.4 %; Platelet Count (auto) 75 10^3/uL (140-450); Red Blood Cells 2.99 10^6/uL (4.0-5.20); Red Cell Distribution Width 13.2 % (11.8-14.3); White Blood Cell 17.5 10^3/uL (4.4-10.8)
--- NOTE | 2020-02-26 16:42 | NUR ---
Patient is being D/C'd from PT. Patient ambulates independently and clarified she does not need physical therapy. Addendum: 02/26/20 at 1643 by Myrna Scott PT Amended: Links added.
--- NOTE | 2020-02-26 19:20 | NUR ---
opening note pt is A&Ox4. respirations even and nonlabored on room air. pt is currently eating. bed in low locked position, call light within reach.
[2020-02-26] MEDS: ATORVASTATIN 20 MG TAB PO SCH (22:56)
[2020-02-27] MEDS: PROMETHAZINE HCL 25 MG/ML 1ML IV PRN ×2 (04:26→22:04)
[2020-02-27] MEDS: MORPHINE SULFATE 4 MG/ML SYR/VIAL IV PRN ×4 (04:26→22:04)
[2020-02-27 05:00] VITALS: BP 131/68
[2020-02-27 05:47] LABS: Potassium 3.4 mmol/L (3.5-5.1)
[2020-02-27 05:53] LABS: % Iron Saturation 73.2 % (15-50)
[2020-02-27 05:55] LABS: Albumin 1.3 g/dL (3.4-5.0); BUN/Creatinine Ratio 28.2; Bilirubin, Total 0.3 mg/dL (0.2-1.0); Calcium 7.6 mg/dL (8.5-10.1)
[2020-02-27] MEDS: SUCRALFATE 1 GM TAB PO SCH ×4 (06:19→22:05)
[2020-02-27] MEDS: PIPERACILLIN-TAZOB 3.375GM 100 ML IV SCH (06:19)
[2020-02-27] MEDS: IPRATROPIUM BROM 0.5 MG/2.5ML INH SOL NEB SCH ×3 (06:20→18:07)
--- NOTE | 2020-02-27 07:28 | NUR ---
closing note pt A&ox4 and ambulatory. respirations even and nonlabored on room air. no pain or discomfort at this time. bed in low locked position, call light within reach.
--- NOTE | 2020-02-27 07:40 | NUR ---
Opening Note Received report from shift production supervisor RN. Patient is awake, alert and oriented x4. No signs or symptoms of distress noted at this time. Patient is on room air, respirations even and unlabored. Patient complains of pain 8/10 to neck, will medicate per orders . Reviewed plan of care with patient, patient verbalized understanding. Bed in low and locked position, call light within reach. Will continue to monitor Q1 hour and PRN.
[2020-02-27] MEDS: PANTOPRAZOLE 40 MG TAB PO SCH (08:47)
--- NOTE | 2020-02-27 08:47 | NUR ---
Pain Patient complains of pain 8/10 to neck. Patient is requesting morphine. Will medicate per orders. Will continue to monitor Q1 hour and PRN.
[2020-02-27 09:00] VITALS: BP 138/65
[2020-02-27] MEDS ORDERED: ERGOCALCIFEROL 50,000 UNIT(1.25MG) CAP PO SCH (09:30)
[2020-02-27] MEDS ORDERED: methylPREDNISolone SOD SUCC 40 MG/ML VL IV ONE (10:45)
[2020-02-27] MEDS: LOSARTAN POTASSIUM 50 MG TAB PO SCH (10:54)
[2020-02-27] MEDS: amLODIPine BESYLATE 5 MG TAB PO SCH (10:54)
--- NOTE | 2020-02-27 11:02 | NUR ---
Dr. Mccabe at bedside Discussing plan of care with patient and this RN. MD to place new orders. Will continue to monitor Q1 hour and PRN.
[2020-02-27] MEDS: HYDROCORTONE 1% TOPICAL CREAM 30 GM TUBE TOP SCH ×2 (12:03→22:11)
--- NOTE | 2020-02-27 12:50 | NUR ---
patient taken down to radiology
[2020-02-27 13:00] VITALS: BP 138/73
[2020-02-27] MEDS ORDERED: VANCOMYCIN PER PHARMACY 0 MG IV SCH (13:00)
[2020-02-27] MEDS ORDERED: VANCOMYCIN 500 MG in D5W 5% 100 ML IV ONE (13:00)
--- NOTE | 2020-02-27 13:05 | NUR ---
patient back to room
--- NOTE | 2020-02-27 13:14 | NUR ---
Pain Patient complains of pain 8/10 to neck and upper chest, and is requesting pain mediations. Will medicate per orders. Will continue to monitor Q1 hour and PRN.
[2020-02-27 13:35] LABS: Basophils # (auto) 0 10 ^3/uL (0-0.2); Basophils % (auto) 0.2 % (0.0-2.0); Eosinophils # (auto) 0 10 ^3/uL (0-0.8); Eosinophils % (auto) 0.3 % (0.0-7.0); Hematocrit 26.3 % (36.0-46.0); Hemoglobin 8.5 g/dL (12.2-16.2); Lymphocytes # (auto) 0.7 10 ^3/uL (0.4-5.4); Lymphocytes % (auto) 5.5 % (10.0-50.0); Mean Corpuscular Hemoglobin 31.2 pg (28.0-32.0); Mean Corpuscular Hgb Conc. 32.2 g/dL (32.0-36.0); Mean Corpuscular Volume 96.9 fL (80.0-100.0); Monocytes # (auto) 0.6 10 ^3/uL (0-1.3); Monocytes % (auto) 5.1 % (0.0-12.0); Neutrophils # (auto) 11.2 10 ^3/uL (1.6-8.6); Neutrophils % (auto) 88.9 % (37.0-80.0); Nucleated Red Blood Cells % 0.3 %; Platelet Count (auto) 66 10^3/uL (140-450); Red Blood Cells 2.71 10^6/uL (4.0-5.20); Red Cell Distribution Width 13.4 % (11.8-14.3); White Blood Cell 12.6 10^3/uL (4.4-10.8)
[2020-02-27] MEDS: MEROPENEM 1GM IVPB 100 ML IV SCH (15:12)
--- NOTE | 2020-02-27 16:43 | NUR ---
Nutrition Followup Notes Pt wt is 84.2 kg Pt appetite is good aeb 90% x5 PO intake per RN doc. Pt with no distress or complaints. Will continue to closely monitor pertinent labs, PO intake and skin status prn. Will followup in 2-3 days Est. Needs BW (71 kg): 6179-7744 kcal (23-25 kcal/kgBW), 56-71 gms pro (0.8-1.0 gms/kgBW elev RFT). Will continue to monitor pertinent labs and reassess nutrient need prn. will reassess if pt on HD LABS: BUN 62 H, CR 2.2 H, GFR 26 L, ALB 1.3 L GI: Pt last BM noted on 02/26 per RN doc. BS: 20 low risk, no wounds. Please refer to wound assessment report for full details. PES: Problem Altered nutrition related lab values r.t current chronic medical condition aeb elev RFT hyperglycemia Comments 1) consider renal specific 70 gm protein 2 gm na diet if RFT continue to elev and pt not on HD (Resolved) 2) refer to [employer] dietitian on DC 3) continue current plan of care
[2020-02-27 16:46] VITALS: BP 149/80
[2020-02-27] MEDS: FERROUS SULFATE 325 MG TAB PO SCH (17:53)
--- NOTE | 2020-02-27 19:15 | NUR ---
Closing Note Report given to parts counter salesperson RN. No signs or symptoms of distress noted at this time.
--- NOTE | 2020-02-27 19:27 | NUR ---
opening note pt is resting in semi fowlers position. pt experiencing minimal discomfort at this time, particularly at fight anterior neck. heat packs provided to minimize pain until next allotted pain medication administration time. respirations are even and non labored on room air. POC discussed with pt. Bed in low locked position, call light within reach.
[2020-02-27 21:46] VITALS: BP 131/71
[2020-02-27] MEDS: ATORVASTATIN 20 MG TAB PO SCH (22:05)
[2020-02-28] MEDS: MEROPENEM 1GM IVPB 100 ML IV SCH (01:54)
[2020-02-28] MEDS: MORPHINE SULFATE 4 MG/ML SYR/VIAL IV PRN ×4 (03:14→21:46)
--- NOTE | 2020-02-28 03:14 | NUR ---
pain c/o pain at anterior right neck area, 04/25. pt will be medicated with orders provided.
[2020-02-28 05:21] VITALS: BP 128/70
[2020-02-28 06:07] LABS: Potassium 3.6 mmol/L (3.5-5.1)
[2020-02-28 06:12] LABS: Albumin 1.5 g/dL (3.4-5.0); BUN/Creatinine Ratio 28.6; Bilirubin, Total 0.3 mg/dL (0.2-1.0); Calcium 7.6 mg/dL (8.5-10.1); Total Protein 5.1 g/dL (6.4-8.2)
[2020-02-28] MEDS: IPRATROPIUM BROM 0.5 MG/2.5ML INH SOL NEB SCH ×3 (06:14→18:45)
[2020-02-28] MEDS: SUCRALFATE 1 GM TAB PO SCH ×4 (06:47→21:45)
--- NOTE | 2020-02-28 07:12 | NUR ---
closing note pt dangling at bedside. respirations even and nonlabored on room air. pt is A&O4. Bed in low locked position, call light within reach. Endorsed care to day shift RN Summer.
--- NOTE | 2020-02-28 07:25 | NUR ---
Opening Note Received report from grape grower RN. Patient is awake, alert and oriented x4. No signs or symptoms of distress noted at this time. Patient complains of pain 8/10 to neck, will medicate per orders.Patient is on room air, respirations even and unlabored. Reviewed plan of care with patient, patient verbalized understanding. Bed in low and locked position, call light within reach. Will continue to monitor Q1 hour and PRN.
[2020-02-28 09:00] VITALS: BP 132/76
[2020-02-28] MEDS: FERROUS SULFATE 325 MG TAB PO SCH ×2 (09:59→17:28)
[2020-02-28] MEDS ORDERED: methylPREDNISolone SOD SUCC 40 MG/ML VL IV SCH (10:00)
[2020-02-28] MEDS: LOSARTAN POTASSIUM 50 MG TAB PO SCH (10:00)
[2020-02-28] MEDS: PANTOPRAZOLE 40 MG TAB PO SCH (10:03)
[2020-02-28] MEDS: amLODIPine BESYLATE 5 MG TAB PO SCH (10:04)
--- NOTE | 2020-02-28 10:07 | NUR ---
Pain Patient complains of pain 8/10 to right side of neck and is requesting pain mediations. Will medicate per orders. Will continue to monitor Q1 hour and PRN.
[2020-02-28] MEDS: PROMETHAZINE HCL 25 MG/ML 1ML IV PRN ×2 (10:36→21:46)
--- NOTE | 2020-02-28 10:36 | NUR ---
Nausea Patient states she has an upset stomach and is requesting Phenergan. Will administer medications as ordered. Will continue to monitor Q1 hour and PRN.
[2020-02-28] MEDS ORDERED: ENOXAPARIN SOD 80 MG/0.8ML SYRINGE SC ONE (11:15)
[2020-02-28] MEDS ORDERED: levoFLOXacin 500 MG TAB PO ONE (11:30)
[2020-02-28] MEDS ORDERED: CLINDAMYCIN HCL 150 MG CAP PO ONE (11:30)
[2020-02-28] MEDS: HYDROCORTONE 1% TOPICAL CREAM 30 GM TUBE TOP SCH ×2 (11:40→21:45)
--- NOTE | 2020-02-28 11:55 | NUR ---
ultra sound tech at bedside
--- NOTE | 2020-02-28 12:26 | NUR ---
Dr. Mccabe at bedside Discussing plan of care with patient and this RN. All questions and concerns addressed. Will continue to monitor Q1 hour and PRN.
[2020-02-28 13:00] VITALS: BP 136/78
[2020-02-28] MEDS: CLINDAMYCIN HCL 150 MG CAP PO SCH ×2 (14:08→21:45)
[2020-02-28 18:48] VITALS: BP 136/78
--- NOTE | 2020-02-28 19:30 | NUR ---
Closing Note Report given to cro RN. No signs or symptoms of distress noted at this time.
--- NOTE | 2020-02-28 19:32 | NUR ---
Opening Shift Note Received report and assumed care of patient. Patient is awake and alert. No signs or symptoms of distress noted. Instructed patient on plan of care and to call for assistance as needed. Will continue to monitor.
[2020-02-28 21:45] VITALS: BP 133/70
[2020-02-28] MEDS: ATORVASTATIN 20 MG TAB PO SCH (21:45)
[2020-02-28] MEDS: APIXABAN 2.5 MG TAB PO SCH (21:45)
--- NOTE | 2020-02-28 21:46 | NUR ---
Pain Medication Administration Patient complaining of generalized pain 8/10. Will administer pain medication per MD order. Will reassess pain level and will continue to monitor.
--- NOTE | 2020-02-28 22:15 | NUR ---
Pain Level Reassessment Patient asleep for pain level reassessment. No signs or symptoms of distress noted, will continue to monitor.
[2020-02-29] MEDS: MORPHINE SULFATE 4 MG/ML SYR/VIAL IV PRN ×4 (02:36→20:01)
--- NOTE | 2020-02-29 02:36 | NUR ---
Pain Medication Administration Patient complaining of neck pain 04/25. Will administer pain medication per MD order. Will reassess pain level and will continue to monitor.
--- NOTE | 2020-02-29 03:06 | NUR ---
Pain Level Reassessment Patient asleep for pain level reassessment. No signs or symptoms of distress noted, will continue to monitor.
[2020-02-29 04:47] VITALS: BP 134/58
[2020-02-29] MEDS: CLINDAMYCIN HCL 150 MG CAP PO SCH ×3 (06:25→21:08)
[2020-02-29] MEDS: SUCRALFATE 1 GM TAB PO SCH ×4 (06:25→21:10)
[2020-02-29 07:00] LABS: Potassium 3.5 mmol/L (3.5-5.1)
[2020-02-29 07:16] LABS: Albumin 1.4 g/dL (3.4-5.0); BUN/Creatinine Ratio 27.8; Bilirubin, Total 0.2 mg/dL (0.2-1.0); Calcium 7.8 mg/dL (8.5-10.1); Total Protein 5.2 g/dL (6.4-8.2)
[2020-02-29] MEDS: IPRATROPIUM BROM 0.5 MG/2.5ML INH SOL NEB SCH ×3 (07:25→18:35)
--- NOTE | 2020-02-29 07:30 | NUR ---
Opening Note Received report from retail shift supervisor RN. Patient is awake, alert and oriented x4. No signs or symptoms of distress noted at this time. Patient complains of pain 8/10 and is requesting pain medications. Will medicate per orders. Patient is on room air, respirations even and unlabored. Reviewed plan of care with patient, patient verbalized understanding. Bed in low and locked position, call light within reach. Will continue to monitor Q1 hour and PRN.
[2020-02-29] MEDS: FERROUS SULFATE 325 MG TAB PO SCH ×3 (08:00→18:20)
--- NOTE | 2020-02-29 08:34 | NUR ---
Pain Patient complains of generalized pain 8/10 and is requesting pain medications. Pain provided with heat and ice packs. Will medicate per orders. Will continue to monitor Q1 hour and PRN.
[2020-02-29] MEDS: predniSONE 20 MG TAB PO SCH (08:41)
[2020-02-29] MEDS: PANTOPRAZOLE 40 MG TAB PO SCH (08:42)
[2020-02-29 09:11] VITALS: BP 154/87
[2020-02-29] MEDS: HYDROCORTONE 1% TOPICAL CREAM 30 GM TUBE TOP SCH ×2 (10:00→21:09)
--- NOTE | 2020-02-29 11:07 | NUR ---
Dr. Mccabe at bedside Discussing plan of care with patient and this RN. All questions and concerns addressed. Will continue to monitor Q1 hour and PRN.
[2020-02-29] MEDS ORDERED: ERGOCALCIFEROL 50,000 UNIT(1.25MG) CAP PO SCH (11:30)
[2020-02-29] MEDS: APIXABAN 2.5 MG TAB PO SCH ×2 (11:33→21:08)
[2020-02-29] MEDS: levoFLOXacin 500 MG TAB PO SCH (11:33)
[2020-02-29] MEDS: LOSARTAN POTASSIUM 50 MG TAB PO SCH (11:34)
[2020-02-29] MEDS: amLODIPine BESYLATE 5 MG TAB PO SCH (11:34)
[2020-02-29 12:47] VITALS: BP 152/75
[2020-02-29 16:32] VITALS: BP 135/66
--- NOTE | 2020-02-29 19:12 | NUR ---
Closing Note Report given to night patrol inspector RN. No signs or symptoms of distress noted at this time.
--- NOTE | 2020-02-29 19:45 | NUR ---
assumed care, pt. awake, no c/o pain, no sob.
[2020-02-29 21:00] VITALS: BP 150/83
[2020-02-29] MEDS: ATORVASTATIN 20 MG TAB PO SCH (21:08)
[2020-03-01] MEDS: MORPHINE SULFATE 4 MG/ML SYR/VIAL IV PRN ×5 (00:39→22:23)
[2020-03-01 05:00] VITALS: BP 138/73
[2020-03-01 05:27] LABS: Basophils # (auto) 0 10 ^3/uL (0-0.2); Basophils % (auto) 0.1 % (0.0-2.0); Eosinophils # (auto) 0.1 10 ^3/uL (0-0.8); Eosinophils % (auto) 0.6 % (0.0-7.0); Hematocrit 28.9 % (36.0-46.0); Hemoglobin 9.4 g/dL (12.2-16.2); Lymphocytes % (auto) 10.3 % (10.0-50.0); Mean Corpuscular Hemoglobin 31.6 pg (28.0-32.0); Mean Corpuscular Hgb Conc. 32.4 g/dL (32.0-36.0); Mean Corpuscular Volume 97.4 fL (80.0-100.0); Monocytes # (auto) 0.7 10 ^3/uL (0-1.3); Monocytes % (auto) 6.7 % (0.0-12.0); Neutrophils % (auto) 82.3 % (37.0-80.0); Platelet Count (auto) 95 10^3/uL (140-450); Red Blood Cells 2.97 10^6/uL (4.0-5.20); Red Cell Distribution Width 14.9 % (11.8-14.3); White Blood Cell 9.7 10^3/uL (4.4-10.8)
[2020-03-01] MEDS: CLINDAMYCIN HCL 150 MG CAP PO SCH ×3 (05:37→21:36)
[2020-03-01 05:51] LABS: Albumin 1.5 g/dL (3.4-5.0); BUN/Creatinine Ratio 27.9; Potassium 3.5 mmol/L (3.5-5.1)
[2020-03-01 05:54] LABS: Bilirubin, Total 0.2 mg/dL (0.2-1.0); Total Protein 5.9 g/dL (6.4-8.2)
[2020-03-01] MEDS: SUCRALFATE 1 GM TAB PO SCH ×4 (06:01→21:36)
[2020-03-01] MEDS: IPRATROPIUM BROM 0.5 MG/2.5ML INH SOL NEB SCH ×3 (06:42→18:56)
--- NOTE | 2020-03-01 07:20 | NUR ---
Opening Shift Note Assumed care of patient, awake and alert. No S/S of distress/SOB, receiving breathing treatment, reports, mild body pain. Instructed on POC and to call for assist PRN, will continue to monitor for changes Q1hr and PRN.
[2020-03-01] MEDS: FERROUS SULFATE 325 MG TAB PO SCH ×2 (08:36→17:12)
[2020-03-01 09:00] VITALS: BP 135/76
[2020-03-01] MEDS: PROMETHAZINE HCL 25 MG/ML 1ML IV PRN ×2 (09:53→18:14)
[2020-03-01] MEDS: HYDROCORTONE 1% TOPICAL CREAM 30 GM TUBE TOP SCH ×2 (09:53→22:00)
[2020-03-01] MEDS: amLODIPine BESYLATE 5 MG TAB PO SCH (09:54)
[2020-03-01] MEDS: PANTOPRAZOLE 40 MG TAB PO SCH (09:54)
[2020-03-01] MEDS: predniSONE 20 MG TAB PO SCH (09:55)
[2020-03-01] MEDS: levoFLOXacin 500 MG TAB PO SCH (09:55)
[2020-03-01] MEDS: LOSARTAN POTASSIUM 50 MG TAB PO SCH (09:55)
[2020-03-01] MEDS: APIXABAN 2.5 MG TAB PO SCH ×2 (09:56→21:37)
[2020-03-01 13:00] VITALS: BP 125/73
--- NOTE | 2020-03-01 14:06 | NUR ---
Nutrition Followup Notes Pt wt is 87.1 kg Pt awake and oriented when rounded this am. per pt no N/V with fair appetite. pt is currently on renal std diet with adequate PO of 75% x 6 per RN doc Est. Needs BW (71 kg): 6097-5231 kcal (23-25 kcal/kgBW), 56-71 gms pro (0.8-1.0 gms/kgBW elev RFT). Will continue to monitor pertinent labs and reassess nutrient need prn. will reassess if pt on HD LABS: CA 8.0 L, BUN 43 H, CREAT 1.54 H, ALB 1.5 L. GI: Pt last BM yesterday per RN doc. BS: 20 low risk, no wounds. Please refer to wound assessment report for full details. PES: Problem Altered nutrition related lab values r.t current chronic medical condition aeb elev RFT hyperglycemia Comments 1) consider renal specific 70 gm protein 2 gm na diet if RFT continue to elev and pt not on HD 2) refer to [employer] dietitian on DC 3) continue current plan of care
[2020-03-01 16:55] VITALS: BP 116/56
--- NOTE | 2020-03-01 19:40 | NUR ---
ASSUMED CARE, PT. AWAKE, NO C/O PAIN AND NAUSEA, NO SOB.
[2020-03-01] MEDS: ATORVASTATIN 20 MG TAB PO SCH (21:37)
[2020-03-01 21:59] VITALS: BP 141/79
[2020-03-02] MEDS: MORPHINE SULFATE 4 MG/ML SYR/VIAL IV PRN ×4 (04:14→21:24)
[2020-03-02 05:03] VITALS: BP 146/77
[2020-03-02] MEDS: CLINDAMYCIN HCL 150 MG CAP PO SCH ×3 (05:31→21:22)
[2020-03-02] MEDS: SUCRALFATE 1 GM TAB PO SCH ×4 (06:02→21:22)
[2020-03-02 06:44] LABS: Albumin 1.4 g/dL (3.4-5.0); Calcium 7.7 mg/dL (8.5-10.1); Potassium 3.7 mmol/L (3.5-5.1)
[2020-03-02 06:49] LABS: BUN/Creatinine Ratio 23.9; Bilirubin, Total 0.3 mg/dL (0.2-1.0); Total Protein 5.3 g/dL (6.4-8.2)
[2020-03-02] MEDS: IPRATROPIUM BROM 0.5 MG/2.5ML INH SOL NEB SCH ×4 (07:13→22:31)
--- NOTE | 2020-03-02 07:30 | NUR ---
RECEIVED REPORT FROM NIGHT NURSE. PATIENT RESTING IN BED, NO DISTRESS NOTED. WILL CONTINUE TO MONITOR.
[2020-03-02 09:00] VITALS: BP_SYST 132; BP_SYST 149; BP_DIAS 71; BP_DIAS 77
[2020-03-02] MEDS: FERROUS SULFATE 325 MG TAB PO SCH ×2 (09:11→18:42)
--- NOTE | 2020-03-02 09:19 | NUR ---
DOCTOR ANGULO AT BEDSIDE. ORDERS RECEIVED, WILL PLACE AND CARRY OUT.
[2020-03-02] MEDS: levoFLOXacin 500 MG TAB PO SCH (10:00)
[2020-03-02] MEDS: PANTOPRAZOLE 40 MG TAB PO SCH (10:01)
[2020-03-02] MEDS: amLODIPine BESYLATE 5 MG TAB PO SCH (10:01)
[2020-03-02] MEDS: predniSONE 20 MG TAB PO SCH (10:01)
[2020-03-02] MEDS: APIXABAN 2.5 MG TAB PO SCH ×2 (10:02→21:22)
[2020-03-02] MEDS: HYDROCORTONE 1% TOPICAL CREAM 30 GM TUBE TOP SCH ×2 (10:02→21:23)
[2020-03-02] MEDS: LOSARTAN POTASSIUM 50 MG TAB PO SCH (10:02)
[2020-03-02] MEDS: ALBUTEROL SULF 2.5 MG/0.5ML(0.5%) NEB SOLN NEB PRN ×2 (11:37→22:30)
[2020-03-02 13:22] VITALS: BP 123/87
--- NOTE | 2020-03-02 15:10 | NUR ---
DOCTOR Campbell HENSLEY AT BEDSIDE. ORDERS RECEIVED, WILL PLACE AND CARRY OUT.
[2020-03-02] MEDS ORDERED: OMNIPAQUE ORAL SOLN 500ml 12mg/ml PO ONE (15:27)
[2020-03-02 16:57] VITALS: BP 118/80
--- NOTE | 2020-03-02 19:00 | NUR ---
PT REFUSED [place] TX AT THIS TIME, WILL CALL WHEN NEEDED. NO SOB NOTED
--- NOTE | 2020-03-02 19:15 | NUR ---
ASSUMED CARE, PT. AWAKE, NO C/O PAIN, NOT IN DISTRESS.
[2020-03-02] MEDS: ATORVASTATIN 20 MG TAB PO SCH (21:23)
--- NOTE | 2020-03-02 21:24 | NUR ---
PT. C/O GENERALIZED PAIN, 04/25, PAIN PAIN GIVEN IV ORDERED.
[2020-03-02 21:50] VITALS: BP 127/81
--- NOTE | 2020-03-02 21:54 | NUR ---
RE - ASSESSED PT. PAIN, NO C/O PAIN AT THIS TIME.
[2020-03-03] MEDS: MORPHINE SULFATE 4 MG/ML SYR/VIAL IV PRN ×5 (02:20→22:32)
[2020-03-03 02:37] VITALS: BP 123/87
[2020-03-03 04:51] VITALS: BP 146/85
[2020-03-03] MEDS: CLINDAMYCIN HCL 150 MG CAP PO SCH ×3 (05:32→22:27)
[2020-03-03] MEDS: SUCRALFATE 1 GM TAB PO SCH ×4 (06:14→22:27)
[2020-03-03] MEDS: PROMETHAZINE HCL 25 MG/ML 1ML IV PRN ×2 (06:33→22:32)
[2020-03-03] MEDS: IPRATROPIUM BROM 0.5 MG/2.5ML INH SOL NEB SCH ×2 (06:49→18:14)
[2020-03-03] MEDS: ALBUTEROL SULF 2.5 MG/0.5ML(0.5%) NEB SOLN NEB PRN ×3 (06:49→18:14)
[2020-03-03 07:06] LABS: Potassium 3.7 mmol/L (3.5-5.1)
[2020-03-03 07:23] LABS: Albumin 1.4 g/dL (3.4-5.0); BUN/Creatinine Ratio 22.6; Bilirubin, Total 0.3 mg/dL (0.2-1.0); Calcium 7.7 mg/dL (8.5-10.1); Total Protein 5.3 g/dL (6.4-8.2)
--- NOTE | 2020-03-03 08:00 | NUR ---
OPENING SHIFT NOTE ASSUMED CARE OF PATIENT AWAKE AND ALERT. NO S/S OF DISTRESS NOTED OR COMPLAINTS OF PAIN. PATIENT UPDATED ON POC FOR THE DAY AND ALL QUESTIONS ANSWERED. BED IS IN LOWEST, LOCKED POSITION WITH SIDE RAILS UP X2 AND CALL LIGHT WITHIN REACH. WILL CONTINUE TO MONITOR Q1H AND PRN.
[2020-03-03 09:27] VITALS: BP 150/78
[2020-03-03] MEDS: FERROUS SULFATE 325 MG TAB PO SCH ×2 (09:39→18:59)
[2020-03-03] MEDS: predniSONE 20 MG TAB PO SCH (09:39)
[2020-03-03] MEDS: levoFLOXacin 500 MG TAB PO SCH (09:39)
[2020-03-03] MEDS: amLODIPine BESYLATE 5 MG TAB PO SCH (09:39)
[2020-03-03] MEDS: LOSARTAN POTASSIUM 50 MG TAB PO SCH (09:39)
[2020-03-03] MEDS: APIXABAN 2.5 MG TAB PO SCH (09:39)
[2020-03-03] MEDS: PANTOPRAZOLE 40 MG TAB PO SCH (09:40)
[2020-03-03] MEDS: IPRATROPIUM BROM 0.5 MG/2.5ML INH SOL NEB PRN (11:57)
[2020-03-03 13:00] VITALS: BP 119/71
[2020-03-03 14:41] LABS: Basophils # (auto) 0 10 ^3/uL (0-0.2); Eosinophils # (auto) 0 10 ^3/uL (0-0.8); Hemoglobin 7.3 g/dL (12.2-16.2); Lymphocytes # (auto) 0.2 10 ^3/uL (0.4-5.4); Monocytes # (auto) 0.2 10 ^3/uL (0-1.3)
[2020-03-03 14:42] LABS: Basophils % (auto) 0.2 % (0.0-2.0); Eosinophils % (auto) 0.1 % (0.0-7.0); Hematocrit 22.2 % (36.0-46.0); Lymphocytes % (auto) 3.3 % (10.0-50.0); Mean Corpuscular Hemoglobin 31.4 pg (28.0-32.0); Mean Corpuscular Hgb Conc. 32.8 g/dL (32.0-36.0); Mean Corpuscular Volume 95.9 fL (80.0-100.0); Monocytes % (auto) 2.7 % (0.0-12.0); Neutrophils # (auto) 6.7 10 ^3/uL (1.6-8.6); Neutrophils % (auto) 93.7 % (37.0-80.0); Platelet Count (auto) 94 10^3/uL (140-450); Red Blood Cells 2.31 10^6/uL (4.0-5.20); Red Cell Distribution Width 15.8 % (11.8-14.3); White Blood Cell 7.2 10^3/uL (4.4-10.8)
[2020-03-03] MEDS ORDERED: DAPTOmycin 400 MG in SODIUM CHL 0.9% 50 ML IV SCH ×2 (15:45→17:00)
[2020-03-03] MEDS ORDERED: MICAFUNGIN SODIUM 100 MG in SODIUM CHL 0.9% 100 ML IV ONE (15:45)
--- NOTE | 2020-03-03 16:06 | NUR ---
I spoke with Dr. Mccabe regarding the order to transfer to higher level of care. I faxed transfer order to [facility], [facility] and [facility].
[2020-03-03] MEDS: HYDROCORTONE 1% TOPICAL CREAM 30 GM TUBE TOP SCH ×2 (16:10→22:27)
--- NOTE | 2020-03-03 16:13 | NUR ---
I called the [facility] [phone] and spoke with Jazmin regarding the need to transfer this patient-she is going to find out of they are accepting new transfers at this time and she will give me a call back.
--- NOTE | 2020-03-03 16:17 | NUR ---
I called [facility] and spoke with [employer] Analyst Marivel [phone] regarding the transfer request, she will give me a call back regarding authorization.
--- NOTE | 2020-03-03 16:48 | NUR ---
I received a call back from Marivel at [facility], authorization number for facility is [id number] and authorization for [facility] is [id number]. I received a call from [facility] letting me know that they are only accepting transfers for STEMI, STROKE or LIVER patients.
[2020-03-03 17:00] VITALS: BP 122/61
--- NOTE | 2020-03-03 17:02 | NUR ---
I called [facility] [phone] and spoke with Jazmin, she is still waiting to hear back from her model and pattern supervisor to see whether or not they are accepting transfers at this time. Requested clinical information provided including contact number for Dr. Mccabe as well as the nurse's station. I called [facility] and spoke with Rubin, placed patient on will call pending transfer to higher level of care-I spoke with nurse William and updated her on the status of the transfer.
--- NOTE | 2020-03-03 17:44 | NUR ---
[facility] RECEIVED CALL FROM [facility]. PER [facility] THEY ARE NOT ACCEPTING MED/SURG/TELE ADMITS AT THIS TIME.
--- NOTE | 2020-03-03 19:30 | NUR ---
Opening Shift Note Assumed care of patient. Patient is awake and alert. No S/S of distress/SOB or pain. Instructed on POC and to call for assist PRN, will continue to monitor for changes Q1hr and PRN. Bed locked in lowest position and bed rails up x2. Call light within reach.
[2020-03-03 21:51] VITALS: BP 123/58
[2020-03-03] MEDS ORDERED: APIXABAN 5 MG TAB PO SCH (22:00)
[2020-03-03] MEDS: ATORVASTATIN 20 MG TAB PO SCH (22:00)
[2020-03-03] MEDS: APIXABAN 5 MG TAB PO SCH (22:27)
[2020-03-04] VITALS (13 sets, daily range): BP systolic 114–143; BP diastolic 51–82
[2020-03-04] MEDS: PIPERACILLIN-TAZOB 3.375GM 100 ML IV SCH ×4 (00:30→18:00)
[2020-03-04] MEDS: PROMETHAZINE HCL 25 MG/ML 1ML IV PRN (03:53)
[2020-03-04] MEDS: MORPHINE SULFATE 4 MG/ML SYR/VIAL IV PRN ×3 (03:53→15:27)
[2020-03-04] MEDS: ALBUTEROL SULF 2.5 MG/0.5ML(0.5%) NEB SOLN NEB PRN ×3 (05:48→19:00)
[2020-03-04] MEDS: IPRATROPIUM BROM 0.5 MG/2.5ML INH SOL NEB SCH ×3 (05:48→19:00)
[2020-03-04 06:38] LABS: Basophils # (auto) 0 10 ^3/uL (0-0.2); Eosinophils # (auto) 0 10 ^3/uL (0-0.8); Monocytes # (auto) 0.6 10 ^3/uL (0-1.3); Neutrophils # (auto) 5.5 10 ^3/uL (1.6-8.6)
[2020-03-04] MEDS: SUCRALFATE 1 GM TAB PO SCH ×4 (06:39→22:48)
[2020-03-04] MEDS: CLINDAMYCIN HCL 150 MG CAP PO SCH ×2 (06:39→14:43)
[2020-03-04 06:42] LABS: Basophils % (auto) 0.1 % (0.0-2.0); Eosinophils % (auto) 0.1 % (0.0-7.0); Hematocrit 20.7 % (36.0-46.0); Lymphocytes # (auto) 0.8 10 ^3/uL (0.4-5.4); Lymphocytes % (auto) 10.9 % (10.0-50.0); Mean Corpuscular Hemoglobin 32.2 pg (28.0-32.0); Mean Corpuscular Hgb Conc. 33.4 g/dL (32.0-36.0); Mean Corpuscular Volume 96.3 fL (80.0-100.0); Monocytes % (auto) 8.9 % (0.0-12.0); Platelet Count (auto) 101 10^3/uL (140-450); Red Blood Cells 2.15 10^6/uL (4.0-5.20); Red Cell Distribution Width 16.1 % (11.8-14.3); White Blood Cell 6.9 10^3/uL (4.4-10.8)
--- NOTE | 2020-03-04 06:50 | NUR ---
Critical lab Paged Hospitalist for critical lab for decreased hgb. Awaiting call back.
[2020-03-04 06:51] LABS: Hemoglobin 6.9 g/dL (12.2-16.2)
[2020-03-04 06:55] LABS: Potassium 3.7 mmol/L (3.5-5.1)
[2020-03-04 07:02] LABS: Albumin 1.4 g/dL (3.4-5.0); BUN/Creatinine Ratio 21.3; Bilirubin, Total 0.3 mg/dL (0.2-1.0); Calcium 7.6 mg/dL (8.5-10.1); Total Protein 4.9 g/dL (6.4-8.2)
--- NOTE | 2020-03-04 07:25 | NUR ---
Assumed care. Patient resting in bed AOx4. No s/s of distress noted at this time, Patient reports pain 10/10. Will medicate per doctors orders when patient is do. Patient updated on POC and to call for assistance as needed. Will continue care.
[2020-03-04] MEDS: FERROUS SULFATE 325 MG TAB PO SCH ×2 (08:00→18:35)
[2020-03-04] MEDS ORDERED: MICAFUNGIN SODIUM 100 MG in SODIUM CHL 0.9% 100 ML IV SCH (10:00)
[2020-03-04] MEDS ORDERED: predniSONE 20 MG TAB PO SCH ×2 (10:00)
--- NOTE | 2020-03-04 10:41 | NUR ---
I called [facility] Transfer Center [phone] and spoke with Jackson-provided him with contact information for Dr. Mccabe and the nurse's station. Faxed requested clinical information to [phone].
[2020-03-04] MEDS: APIXABAN 5 MG TAB PO SCH (10:49)
[2020-03-04] MEDS: levoFLOXacin 500 MG TAB PO SCH (10:50)
[2020-03-04] MEDS: PANTOPRAZOLE 40 MG TAB PO SCH (10:50)
[2020-03-04] MEDS: amLODIPine BESYLATE 5 MG TAB PO SCH (10:50)
[2020-03-04] MEDS: LOSARTAN POTASSIUM 50 MG TAB PO SCH (10:50)
[2020-03-04] MEDS: HYDROCORTONE 1% TOPICAL CREAM 30 GM TUBE TOP SCH ×2 (10:51→22:49)
--- NOTE | 2020-03-04 13:44 | NUR ---
Nutrition Followup Notes Pt wt is 93.3 kg Pt was not in room at time of rounds. Pt at is good per RN doc with reported po intake of 90%. Est. Needs BW (71 kg): 1932-5002 kcal (23-25 kcal/kgBW), 56-71 gms pro (0.8-1.0 gms/kgBW elev RFT). Will continue to monitor pertinent labs and reassess nutrient need prn. will reassess if pt on HD LABS: BUN 35H, Creat 1.64H, Ca 7.6L, Alb 1.4L GI: Pt last BM today per RN doc BS: 22 low risk, no wounds. Please refer to wound assessment report for full details. PES: Problem Altered nutrition related lab values r.t current chronic medical condition aeb elev RFT hyperglycemia Comments 1) consider renal specific 70 gm protein 2 gm na diet if RFT continue to elev and pt not on HD 2) refer to [employer] dietitian on DC 3) continue current plan of care 4) F/u 3-5 days
--- NOTE | 2020-03-04 15:00 | NUR ---
HOLD Per MD Mccabe hold [address] administration.
--- NOTE | 2020-03-04 15:34 | NUR ---
Blood transfusion initiated
[2020-03-04 15:56] LABS: INR 0.99 (0.9-1.15)
[2020-03-04] MEDS ORDERED: FUROSEMIDE 20 MG/2 ML VIAL IV ONE ×2 (16:00→18:45)
[2020-03-04] MEDS ORDERED: DAPTOmycin 500 MG in SODIUM CHL 0.9% 50 ML IV SCH (17:00)
[2020-03-04] MEDS ORDERED: WARFARIN SODIUM 5 MG TAB PO ONE (17:00)
--- NOTE | 2020-03-04 17:07 | NUR ---
I called [facility] ([phone]) and spoke with Divya, patient remains on will call pending transfer to [facility]. I faxed transfer back agreement to [facility]. I called [facility] Transfer Center [phone] and spoke with Jey, they did receive the transfer back agreement and will call the nurse's station with the actual bed assignment. I relayed this information to Nurse Griffin.
--- NOTE | 2020-03-04 18:36 | NUR ---
Communication Per MD Mccabe. Lasix one time 20 mg IV push to be administered one hour after blood transfusion.
--- NOTE | 2020-03-04 18:40 | NUR ---
Blood transfusion terminated. Bloo transfusion terminated. Patient tolerated well.
--- NOTE | 2020-03-04 19:30 | NUR ---
Closing shift note Patient currently in bed, no s/s of distress noted. Patient running remainder of 1200 scheduled Zosyn that was paused do to blood transfusion. Pending administration of Warfarin one time dose awaiting for pharmacy to bullet. Pending Lasix one time dose administration to be administered one hour after blood transfusion termination. NOC RN Paulo aware. Care endorsed.
[2020-03-04] MEDS: MORPHINE SULF INJ 2 MG/ML SYRINGE 1ML IV PRN (19:56)
--- NOTE | 2020-03-04 20:30 | NUR ---
Received phone call from Aleksandr from [employer] for transfer: Room 6201 Telemetry unit Accepting MD Last
--- NOTE | 2020-03-04 21:00 | NUR ---
Resource called [facility] and ETA is 90 minutes. [facility] also notified of ETA.
--- NOTE | 2020-03-04 21:54 | NUR ---
Called [facility] and provided report to SAWYER Faust. and noreen for draft roller picker [phone] or sooner.
[2020-03-04] MEDS ORDERED: ENOXAPARIN SOD 100 MG/1 ML SYRINGE SC SCH (22:00)
--- NOTE | 2020-03-04 22:00 | NUR ---
Spoke to patient to let her know I was unable to call fiance to notify of patient leaving to another facility because phone is disconnected. Patient stated "its ok, you dont have to call because i already told him, he is aware of transfer".
--- NOTE | 2020-03-04 22:00 | NUR ---
Held Lovenox per report of RN and notes to hold lovenox.
--- NOTE | 2020-03-04 22:30 | NUR ---
Midline IV removal Midline IV DC'd with clean sterile technique, catheter fully intact. Pressure dressing applied to site. Patient tolerated well. Removed due to infiltration, leaking, and pain.
[2020-03-04] MEDS: ATORVASTATIN 20 MG TAB PO SCH (22:47)
[2020-03-04] MEDS: ACETAMINOPHEN 500 MG TAB PO PRN (22:48)
--- NOTE | 2020-03-04 23:12 | NUR ---
Called [facility] to follow ETA. Camp from EMR notified me that there is a high call volume, and it will be another 60 min to 90 minutes.
--- NOTE | 2020-03-04 23:18 | NUR ---
provided update to SAWYER Faust from [employer].
[2020-03-05] MEDS: MORPHINE SULF INJ 2 MG/ML SYRINGE 1ML IV PRN (00:14)
--- NOTE | 2020-03-05 00:27 | NUR ---
Called [facility] and they said they are here to roller picker patient. awaiting arrival.
--- NOTE | 2020-03-05 00:54 | NUR ---
Called [facility]. they advised me crew is here at the hospital for 20 minutes. notified [facility] rep that they are not here? [facility] said they will page [facility] crew right now.
--- NOTE | 2020-03-05 01:05 | NUR ---
Discharge instructions given as ordered. All questions and concerns addressed. Patient verbalized understanding. IV going with patient 24guage. Medication reconciliation form completed and copy given to patient. vaccines refused. Telemetry unit returned to ICU. Report given to Christianne JACQUES going to [facility]. Patient transported by [facility] with all personal belongings. No distress noted at time of departure. Addendum: 03/05/20 at 0119 by Fede Miranda RN report given to [facility]. Addendum: 03/05/20 at 0119 by Fede Miranda RN report given to [facility] at 0105
[2020-03-05] MEDS ORDERED: FUROSEMIDE 40 MG/4 ML VIAL IV SCH (10:00)
== END 2020-03-05 01:05 | disposition short-term general hospital (02) | DRG 346 ==
LOC: ER 09:57 → TELE 09:58 → TELE-EAST 16:06 → TELE-WESTW 17:32
PROVIDERS: ADMIT Nurse Practitioner Acute Care; ATTEND Internal Medicine Nephrology
PROC: 0TB13ZX Excision of Left Kidney, Percutaneous Approach, Diagnostic (ICD-10-PCS; principal; 2020-02-13)
PROC: 0JH63XZ Insertion of Tunneled Vascular Access Device into Chest Subcutaneous Tissue and Fascia, Percutaneous Approach (ICD-10-PCS; 2020-02-19)
PROC: 02H633Z Insertion of Infusion Device into Right Atrium, Percutaneous Approach (ICD-10-PCS; 2020-02-19)
PROC: B548ZZA Ultrasonography of Superior Vena Cava, Guidance (ICD-10-PCS; 2020-02-19)
PROC: 5A1D70Z Performance of Urinary Filtration, Intermittent, Less than 6 Hours Per Day (ICD-10-PCS; 2020-02-19)
PROC: 5A1D70Z Performance of Urinary Filtration, Intermittent, Less than 6 Hours Per Day (ICD-10-PCS; 2020-02-20)
PROC: 30243N1 Transfusion of Nonautologous Red Blood Cells into Central Vein, Percutaneous Approach (ICD-10-PCS; 2020-02-21)
PROC: 5A1D70Z Performance of Urinary Filtration, Intermittent, Less than 6 Hours Per Day (ICD-10-PCS; 2020-02-22)
PROC: 30243N1 Transfusion of Nonautologous Red Blood Cells into Central Vein, Percutaneous Approach (ICD-10-PCS; 2020-03-04)
DX: M32.14 Glomerular disease in systemic lupus erythematosus (principal); A41.1 Sepsis due to other specified staphylococcus; I63.9 Cerebral infarction, unspecified; E43 Unspecified severe protein-calorie malnutrition; D61.818 Other pancytopenia; D69.59 Other secondary thrombocytopenia; E87.2 Acidosis; N17.9 Acute kidney failure, unspecified; T80.211A Bloodstream infection due to central venous catheter, initial encounter; I82.C11 Acute embolism and thrombosis of right internal jugular vein; J45.909 Unspecified asthma, uncomplicated; I73.00 Raynaud's syndrome without gangrene; M32.12 Pericarditis in systemic lupus erythematosus; D50.9 Iron deficiency anemia, unspecified; D63.8 Anemia in other chronic diseases classified elsewhere; N39.0 Urinary tract infection, site not specified; L03.213 Periorbital cellulitis; Z82.49 Family history of ischemic heart disease and other diseases of the circulatory system; Z03.818 Encounter for observation for suspected exposure to other biological agents ruled out; Z87.891 Personal history of nicotine dependence; Z98.51 Tubal ligation status; Z79.51 Long term (current) use of inhaled steroids; Z68.23 Body mass index [BMI] 23.0-23.9, adult
CPT/HCPCS: 10022; 36415; 36600; 70480; 70490; 70545; 70551; 71045; 71250; 74150; 74176; 76942; 77012; 78582; 80048; 80053; 80202; 81001; 82306; 82570; 82728; 82805; 83010; 83540; 83550; 83605; 83615; 83735; 83970; 84100; 84156; 84300; 84443; 84484; 84550; 84702; 85007; 85025; 85027; 85379; 85610; 85613; 85652; 85670; 85705; 85730; 85732; 86038; 86141; 86147; 86160; 86225; 86235; 86703; 86705; 86706; 86709; 86803; 86850; 86880; 86900; 86901; 86920; 87040; 87070; 87077; 87086; 87186; 87340; 87804; 87880; 90935; 93005; 93886; 93971; 94640; 96361; 96365; 96366; 97116; 97163; 97530; 99152; 99153; G0378; J0696; J0885; J1756; J2185; J2248; J2250; J2405; J2543; J7060; J7517

== ENCOUNTER 2020-04-04 01:37 | Emergency (ER) | payer MEDICAID ==
[~2020-04-04] VITALS: Ht 165.1 cm; Wt 63.5 kg
[2020-04-04] MEDS ORDERED: HYDROcodone-ACET 10/325MG TAB PO ONE (02:45)
[2020-04-04 03:21] LABS: Basophils # (auto) 0 10 ^3/uL (0-0.2); Basophils % (auto) 0.4 % (0.0-2.0); Eosinophils # (auto) 0.1 10 ^3/uL (0-0.8); Eosinophils % (auto) 0.8 % (0.0-7.0); Hematocrit 28.3 % (36.0-46.0); Hemoglobin 9.3 g/dL (12.2-16.2); Lymphocytes # (auto) 1.8 10 ^3/uL (0.4-5.4); Lymphocytes % (auto) 24.6 % (10.0-50.0); Mean Corpuscular Hemoglobin 32.7 pg (28.0-32.0); Mean Corpuscular Hgb Conc. 33.1 g/dL (32.0-36.0); Mean Corpuscular Volume 98.9 fL (80.0-100.0); Monocytes # (auto) 0.6 10 ^3/uL (0-1.3); Monocytes % (auto) 7.7 % (0.0-12.0); Neutrophils % (auto) 66.5 % (37.0-80.0); Nucleated Red Blood Cells % 0.3 %; Platelet Count (auto) 191 10^3/uL (140-450); Red Blood Cells 2.86 10^6/uL (4.0-5.20); Red Cell Distribution Width 18.7 % (11.8-14.3); White Blood Cell 7.4 10^3/uL (4.4-10.8)
[2020-04-04 03:33] LABS: INR 2.01 (0.9-1.15); Partial Thromboplastin Time 36.3 sec (23.64-32.05)
[2020-04-04 03:35] LABS: Albumin 2.5 g/dL (3.4-5.0); BUN/Creatinine Ratio 17.3
[2020-04-04 03:38] LABS: Bilirubin, Total 0.3 mg/dL (0.2-1.0); Total Protein 6.4 g/dL (6.4-8.2)
[2020-04-04 04:20] LABS: Urine Bacteria MOD /hpf (None Seen); Urine Blood TRACE /uL (Negative); Urine Hyaline Cast FEW /lpf (0 - 2); Urine Specific Gravity 1.014 (1.001-1.035); Urine WBC 91 /hpf (0 - 5)
[2020-04-04] MEDS ORDERED: ONDANSETRON HCL 4 MG/2 ML VIAL IV ONE (04:30)
[2020-04-04] MEDS ORDERED: cefTRIAXone 1GM/50ML D5W 50 ML IV ONE (05:45)
[2020-04-04] MEDS ORDERED: KETOROLAC TROMETH 30 MG/ML 1ML VIAL IV ONE (09:15)
[2020-04-04 09:25] VITALS: BP 169/79
== END 2020-04-04 10:12 | disposition home or self-care (01) ==
LOC: ER 01:38
DX: N39.0 Urinary tract infection, site not specified (principal); M32.9 Systemic lupus erythematosus, unspecified; M25.562 Pain in left knee; M25.561 Pain in right knee; M79.601 Pain in right arm; J45.909 Unspecified asthma, uncomplicated; I12.9 Hypertensive chronic kidney disease with stage 1 through stage 4 chronic kidney disease, or unspecified chronic kidney disease; N18.9 Chronic kidney disease, unspecified; F17.210 Nicotine dependence, cigarettes, uncomplicated
CPT/HCPCS: 36415; 80053; 81001; 85025; 85610; 85730; 93970; 96365; 96375; 99284; J0696; J1885; J2405

== ENCOUNTER 2022-02-19 03:33 | Emergency (ER) | payer MEDICAID ==
[~2022-02-19] VITALS: Ht 165.1 cm; Wt 77.1 kg
[2022-02-19 04:18] LABS: Basophils # (auto) 0 10 ^3/uL (0-0.2); Basophils % (auto) 0.7 % (0.0-2.0); Eosinophils # (auto) 0 10 ^3/uL (0-0.8); Eosinophils % (auto) 0.7 % (0.0-7.0); Hematocrit 39.4 % (36.0-46.0); Hemoglobin 13.1 g/dL (12.2-16.2); Lymphocytes # (auto) 0.8 10 ^3/uL (0.4-5.4); Lymphocytes % (auto) 19.2 % (10.0-50.0); Mean Corpuscular Hemoglobin 32.2 pg (28.0-32.0); Mean Corpuscular Hgb Conc. 33.3 g/dL (32.0-36.0); Mean Corpuscular Volume 96.7 fL (80.0-100.0); Monocytes # (auto) 0.4 10 ^3/uL (0-1.3); Neutrophils % (auto) 69.4 % (37.0-80.0); Nucleated Red Blood Cells % 0.1 %; Red Blood Cells 4.07 10^6/uL (4.0-5.20); Red Cell Distribution Width 13.6 % (11.8-14.3); White Blood Cell 4.4 10^3/uL (4.4-10.8)
[2022-02-19 04:40] LABS: Albumin 3.4 g/dL (3.4-5.0); Calcium 8.7 mg/dL (8.5-10.1); Potassium 3.6 mmol/L (3.5-5.1)
[2022-02-19 04:42] LABS: BUN/Creatinine Ratio 13.9
[2022-02-19 04:49] LABS: Bilirubin, Total 0.4 mg/dL (0.2-1.0); Total Protein 6.5 g/dL (6.4-8.2)
[2022-02-19] MEDS ORDERED: LABETALOL HCL 5 MG/ML 4ML SYRINGE IV ONE (06:00)
[2022-02-19 09:42] LABS: Urine Bacteria FEW /hpf (None Seen); Urine Blood 1+ /uL (Negative); Urine Specific Gravity 1.018 (1.001-1.035); Urine WBC 5 /hpf (0 - 5)
[2022-02-19 10:20] VITALS: BP 153/91
[2022-02-19] MEDS ORDERED: ACYC-166 PO (10:47)
[2022-02-19] MEDS ORDERED: ONDA-144 PO (10:47)
[2022-02-19] MEDS ORDERED: PERCOT PO (10:47)
== END 2022-02-19 11:11 | disposition home or self-care (01) ==
LOC: ER 03:33
DX: B02.9 Zoster without complications (principal); I12.9 Hypertensive chronic kidney disease with stage 1 through stage 4 chronic kidney disease, or unspecified chronic kidney disease; N18.9 Chronic kidney disease, unspecified; J45.909 Unspecified asthma, uncomplicated; Z87.891 Personal history of nicotine dependence; Z79.899 Other long term (current) drug therapy
CPT/HCPCS: 36415; 71045; 80053; 81001; 83735; 83880; 84443; 84484; 85025; 93005; 96374; 99285; J3490

== ENCOUNTER 2022-02-21 19:59 | Emergency (ER) | payer MEDICAID ==
[~2022-02-21] VITALS: Ht 165.1 cm; Wt 77.1 kg
[~2022-02-21 19:59] MED LIST changes: +ACYC-166 PO; +ONDA-144 PO; +PERCOT PO
[2022-02-21 20:16] VITALS: BP 163/92
[2022-02-21] MEDS ORDERED: HYDR-4798 PO (21:04)
== END 2022-02-22 02:46 | disposition home or self-care (01) ==
LOC: ER 19:59
DX: B02.9 Zoster without complications (principal); J45.909 Unspecified asthma, uncomplicated; I12.9 Hypertensive chronic kidney disease with stage 1 through stage 4 chronic kidney disease, or unspecified chronic kidney disease; N18.9 Chronic kidney disease, unspecified; Z86.73 Personal history of transient ischemic attack (TIA), and cerebral infarction without residual deficits; Z87.891 Personal history of nicotine dependence; Z98.51 Tubal ligation status

== ENCOUNTER 2022-03-06 15:23 | Inpatient (IN) | payer MEDICAID, MEDICARE ==
[~2022-03-06] VITALS: Ht 165.1 cm; Wt 76.9 kg
[~2022-03-06 15:23] MED LIST changes: +HYDR-4798 PO
[2022-03-06 16:26] LABS: Basophils # (auto) 0.1 10 ^3/uL (0-0.2); Basophils % (auto) 3.2 % (0.0-2.0); Eosinophils # (auto) 0.1 10 ^3/uL (0-0.8); Eosinophils % (auto) 1.2 % (0.0-7.0); Hematocrit 43.7 % (36.0-46.0); Hemoglobin 15.1 g/dL (12.2-16.2); Lymphocytes # (auto) 0.6 10 ^3/uL (0.4-5.4); Lymphocytes % (auto) 14.7 % (10.0-50.0); Mean Corpuscular Hemoglobin 33.3 pg (28.0-32.0); Mean Corpuscular Hgb Conc. 34.6 g/dL (32.0-36.0); Mean Corpuscular Volume 96.2 fL (80.0-100.0); Monocytes # (auto) 0.4 10 ^3/uL (0-1.3); Monocytes % (auto) 8.7 % (0.0-12.0); Neutrophils # (auto) 3.2 10 ^3/uL (1.6-8.6); Neutrophils % (auto) 72.2 % (37.0-80.0); Nucleated Red Blood Cells % 0.1 %; Red Blood Cells 4.54 10^6/uL (4.0-5.20); Red Cell Distribution Width 13.9 % (11.8-14.3); White Blood Cell 4.4 10^3/uL (4.4-10.8)
[2022-03-06] MEDS ORDERED: CLINDAMYCIN 600MG IV 50 ML IV ONE (16:30)
[2022-03-06] MEDS ORDERED: ONDANSETRON HCL 4 MG/2 ML VIAL IV ONE (16:30)
[2022-03-06] MEDS ORDERED: MORPHINE SULFATE INJ 2 MG/ml SYRG IV ONE (16:30)
[2022-03-06 16:43] LABS: Albumin 3.4 g/dL (3.4-5.0); BUN/Creatinine Ratio 9.2; Calcium 8.8 mg/dL (8.5-10.1); Potassium 3.6 mmol/L (3.5-5.1)
[2022-03-06 16:46] LABS: Bilirubin, Total 0.8 mg/dL (0.2-1.0); Total Protein 7.4 g/dL (6.4-8.2)
[2022-03-06] MEDS ORDERED: cefTRIAXone 1GM/50ML D5W 50 ML IV ONE (19:15)
[2022-03-06] MEDS ORDERED: MORPHINE SULFATE INJ 2 MG/ml SYRG IV PRN (19:15)
[2022-03-06] MEDS ORDERED: hydrALAZINE HCL 20 MG/ML VL IV PRN (19:15)
[2022-03-06] MEDS ORDERED: ONDANSETRON HCL 4 MG/2 ML VIAL IV PRN (19:15)
[2022-03-06] MEDS ORDERED: ALBUTEROL SULF 2.5 MG/0.5ML(0.5%) NEB SOLN NEB PRN ×2 (19:30→23:00)
[2022-03-06 19:34] LABS: Cholesterol 195 mg/dL (< 200)
[2022-03-06 19:37] LABS: HDL Cholesterol 107 mg/dL (40-59); LDL Cholesterol 72 mg/dL (< 100); Triglycerides 118 mg/dL (< 150)
[2022-03-06] MEDS: SODIUM CHLORIDE 0.9% 1,000 ML IV SCH (20:23)
[2022-03-06] MEDS: LABETALOL HCL 5 MG/ML 4ML SYRINGE IV ONE ×2 (20:23→21:11)
[2022-03-06] MEDS ORDERED: ENOXAPARIN SOD 100 MG/1 ML SYRINGE SC ONE (20:30)
[2022-03-06] MEDS ORDERED: CLINDAMYCIN 600MG IV 50 ML IV SCH (22:00)
[2022-03-06] MEDS: CLINDAMYCIN 600MG IV 50 ML IV SCH (23:02)
[2022-03-06] MEDS: hydrALAZINE HCL 20 MG/ML VL IV PRN (23:03)
[2022-03-06 23:04] VITALS: BP 164/94
[2022-03-06 23:59] VITALS: BP 164/94
[2022-03-07] MEDS: MORPHINE SULFATE INJ 2 MG/ml SYRG IV PRN ×6 (00:15→21:26)
[2022-03-07] MEDS: SODIUM CHLORIDE 0.9% 1,000 ML IV SCH ×3 (04:20→18:57)
[2022-03-07 05:00] VITALS: BP_SYST 162; BP_SYST 167; BP_DIAS 90; BP_DIAS 92
[2022-03-07] MEDS: hydrALAZINE HCL 20 MG/ML VL IV PRN ×2 (05:05→23:41)
[2022-03-07] MEDS: CLINDAMYCIN 600MG IV 50 ML IV SCH ×3 (05:31→21:30)
[2022-03-07] MEDS ORDERED: CLINDAMYCIN 600MG IV 50 ML IV SCH (06:00)
[2022-03-07] MEDS: HYDROcodone-ACET 10/325MG TAB PO PRN ×3 (06:16→23:29)
[2022-03-07 09:00] VITALS: BP_SYST 114; BP_SYST 127; BP_DIAS 71; BP_DIAS 76
[2022-03-07] MEDS ORDERED: ENOXAPARIN SOD 40 MG/0.4 ML SYRINGE SC SCH (10:00)
[2022-03-07] MEDS ORDERED: MYCO500T3 PO (11:57)
[2022-03-07] MEDS ORDERED: HYDR200T36 PO (11:57)
[2022-03-07] MEDS ORDERED: PRED20TA2 PO (11:57)
[2022-03-07] MEDS ORDERED: predniSONE 20 MG TAB PO PRN (12:15)
[2022-03-07] MEDS: ACETAMINOPHEN 325 MG TAB PO PRN (12:32)
[2022-03-07 13:00] VITALS: BP 142/86
[2022-03-07 13:08] LABS: Urine Bacteria FEW /hpf (None Seen); Urine Blood Negative /uL (Negative); Urine Specific Gravity 1.011 (1.001-1.035); Urine WBC 2 /hpf (0 - 5)
[2022-03-07 17:00] VITALS: BP 159/87
[2022-03-07] MEDS: MYCOPHENOLATE 500 MG TAB PO SCH (21:22)
[2022-03-07] MEDS: hydrOXYchloroQUINE SULFATE 200 MG TAB PO SCH (21:23)
[2022-03-07] MEDS: ENOXAPARIN SOD 80 MG/0.8ML SYRINGE SC SCH (21:24)
[2022-03-07] MEDS: METOPROLOL TARTRATE 50 MG TAB PO SCH (21:25)
[2022-03-07] MEDS: ONDANSETRON HCL 4 MG/2 ML VIAL IV PRN (21:28)
[2022-03-07 22:00] VITALS: BP 167/92
[2022-03-08] MEDS: MORPHINE SULFATE INJ 2 MG/ml SYRG IV PRN ×6 (02:13→23:20)
[2022-03-08] MEDS: ONDANSETRON HCL 4 MG/2 ML VIAL IV PRN ×6 (02:14→23:21)
[2022-03-08] MEDS: SODIUM CHLORIDE 0.9% 1,000 ML IV SCH ×2 (02:26→17:17)
[2022-03-08 05:00] VITALS: BP 130/78
[2022-03-08] MEDS: CLINDAMYCIN 600MG IV 50 ML IV SCH ×4 (05:31→22:33)
[2022-03-08] MEDS: ACETAMINOPHEN 325 MG TAB PO PRN (06:19)
[2022-03-08 08:00] VITALS: BP 157/85
[2022-03-08 09:19] VITALS: BP 157/85
[2022-03-08] MEDS ORDERED: PATIENTS OWN MEDICATION (Prednisone 1 TAB) PO SCH (10:00)
[2022-03-08] MEDS: MYCOPHENOLATE 500 MG TAB PO SCH ×3 (10:46→22:00)
[2022-03-08] MEDS: METOPROLOL TARTRATE 50 MG TAB PO SCH (10:47)
[2022-03-08] MEDS: ENOXAPARIN SOD 80 MG/0.8ML SYRINGE SC SCH ×3 (10:48→22:34)
[2022-03-08] MEDS: hydrOXYchloroQUINE SULFATE 200 MG TAB PO SCH ×3 (10:48→22:34)
[2022-03-08] MEDS ORDERED: AMLO-489 PO (11:44)
[2022-03-08] MEDS ORDERED: LOSA-39 PO (11:44)
[2022-03-08] MEDS ORDERED: LOSARTAN POTASSIUM 50 MG TAB PO ONE (12:00)
[2022-03-08] MEDS: predniSONE 5 MG TAB PO SCH (12:45)
[2022-03-08] MEDS: amLODIPine BESYLATE 5 MG TAB PO SCH (12:46)
[2022-03-08 13:00] VITALS: BP 160/91
[2022-03-08] MEDS: HYDROcodone-ACET 10/325MG TAB PO PRN (14:17)
[2022-03-08 17:00] VITALS: BP 158/89
[2022-03-08 22:00] VITALS: BP 179/85
[2022-03-09] MEDS: HYDROcodone-ACET 10/325MG TAB PO PRN ×4 (00:01→22:12)
[2022-03-09] MEDS: MORPHINE SULFATE INJ 2 MG/ml SYRG IV PRN ×4 (03:44→20:50)
[2022-03-09 05:00] VITALS: BP 144/85
[2022-03-09] MEDS: CLINDAMYCIN 600MG IV 50 ML IV SCH ×3 (06:22→22:11)
[2022-03-09 08:00] VITALS: BP 159/84
[2022-03-09 09:25] VITALS: BP 159/84
[2022-03-09] MEDS: MYCOPHENOLATE 500 MG TAB PO SCH ×2 (11:15→22:11)
[2022-03-09] MEDS: predniSONE 5 MG TAB PO SCH (11:15)
[2022-03-09] MEDS: hydrOXYchloroQUINE SULFATE 200 MG TAB PO SCH ×2 (11:16→22:11)
[2022-03-09] MEDS: LOSARTAN POTASSIUM 50 MG TAB PO SCH (11:16)
[2022-03-09] MEDS: amLODIPine BESYLATE 5 MG TAB PO SCH (11:16)
[2022-03-09] MEDS: ENOXAPARIN SOD 80 MG/0.8ML SYRINGE SC SCH (11:17)
[2022-03-09] MEDS: ONDANSETRON HCL 4 MG/2 ML VIAL IV PRN (11:20)
[2022-03-09] MEDS: cloNIDine HCL 0.1 MG TAB PO PRN (12:53)
[2022-03-09 13:00] VITALS: BP 168/83
[2022-03-09] MEDS: GABAPENTIN 300 MG CAP PO SCH ×2 (14:00→22:11)
[2022-03-09 14:06] LABS: Basophils # (auto) 0 10 ^3/uL (0-0.2); Basophils % (auto) 0.9 % (0.0-2.0); Eosinophils # (auto) 0 10 ^3/uL (0-0.8); Eosinophils % (auto) 1.3 % (0.0-7.0); Hematocrit 38.1 % (36.0-46.0); Hemoglobin 12.8 g/dL (12.2-16.2); Lymphocytes # (auto) 0.5 10 ^3/uL (0.4-5.4); Lymphocytes % (auto) 14.6 % (10.0-50.0); Mean Corpuscular Hemoglobin 32.6 pg (28.0-32.0); Mean Corpuscular Hgb Conc. 33.5 g/dL (32.0-36.0); Mean Corpuscular Volume 97.2 fL (80.0-100.0); Monocytes # (auto) 0.2 10 ^3/uL (0-1.3); Monocytes % (auto) 6.1 % (0.0-12.0); Neutrophils # (auto) 2.6 10 ^3/uL (1.6-8.6); Neutrophils % (auto) 77.1 % (37.0-80.0); Nucleated Red Blood Cells % 0.1 %; Red Blood Cells 3.92 10^6/uL (4.0-5.20); Red Cell Distribution Width 13.9 % (11.8-14.3); White Blood Cell 3.3 10^3/uL (4.4-10.8)
[2022-03-09 14:24] LABS: INR 0.96 (0.9-1.15); Partial Thromboplastin Time 37.1 sec (23.6-33.0)
[2022-03-09] MEDS: SODIUM CHLORIDE 0.9% 1,000 ML IV SCH ×2 (16:06→17:33)
[2022-03-09 16:41] LABS: Urine Bacteria NONE SEEN /hpf (None Seen); Urine Blood TRACE /uL (Negative); Urine Specific Gravity 1.009 (1.001-1.035); Urine WBC 2 /hpf (0 - 5)
[2022-03-09 16:58] LABS: Protein, Urine 192.7 mg/dL (0.0-11.9)
[2022-03-09 17:00] VITALS: BP 149/84
[2022-03-09] MEDS ORDERED: WARFARIN SODIUM 5 MG TAB PO ONE (17:00)
[2022-03-09 22:00] VITALS: BP 163/81
[2022-03-10] MEDS: MORPHINE SULFATE INJ 2 MG/ml SYRG IV PRN ×5 (01:10→20:15)
[2022-03-10] MEDS: SODIUM CHLORIDE 0.9% 1,000 ML IV SCH ×3 (04:30→17:40)
[2022-03-10] MEDS: HYDROcodone-ACET 10/325MG TAB PO PRN ×4 (04:31→22:28)
[2022-03-10 05:20] VITALS: BP 177/90
[2022-03-10] MEDS: CLINDAMYCIN 600MG IV 50 ML IV SCH ×3 (05:35→22:27)
[2022-03-10] MEDS: GABAPENTIN 300 MG CAP PO SCH ×3 (06:15→22:28)
[2022-03-10 09:00] VITALS: BP 172/92
[2022-03-10] MEDS: LOSARTAN POTASSIUM 50 MG TAB PO SCH (09:56)
[2022-03-10] MEDS: MYCOPHENOLATE 500 MG TAB PO SCH ×2 (09:56→22:28)
[2022-03-10] MEDS: predniSONE 5 MG TAB PO SCH (09:56)
[2022-03-10] MEDS: hydrOXYchloroQUINE SULFATE 200 MG TAB PO SCH ×2 (09:57→22:28)
[2022-03-10] MEDS: amLODIPine BESYLATE 5 MG TAB PO SCH (09:57)
[2022-03-10] MEDS: ONDANSETRON HCL 4 MG/2 ML VIAL IV PRN (10:57)
[2022-03-10 13:00] VITALS: BP 178/94
[2022-03-10] MEDS: cloNIDine HCL 0.1 MG TAB PO PRN (13:07)
[2022-03-10 16:44] LABS: INR 1.04 (0.9-1.15); Partial Thromboplastin Time 23.6 sec (23.6-33.0)
[2022-03-10 17:00] VITALS: BP 148/83
[2022-03-10] MEDS ORDERED: WARFARIN SODIUM 5 MG TAB PO ONE (17:30)
[2022-03-10 22:00] VITALS: BP 152/83
[2022-03-11] MEDS: MORPHINE SULFATE INJ 2 MG/ml SYRG IV PRN ×4 (03:13→21:19)
[2022-03-11 05:00] VITALS: BP 142/93
[2022-03-11] MEDS: GABAPENTIN 300 MG CAP PO SCH ×3 (05:02→21:20)
[2022-03-11] MEDS: CLINDAMYCIN 600MG IV 50 ML IV SCH ×2 (05:02→14:42)
[2022-03-11] MEDS: HYDROcodone-ACET 10/325MG TAB PO PRN ×3 (05:03→17:47)
[2022-03-11 08:49] VITALS: BP 169/100
[2022-03-11] MEDS: MYCOPHENOLATE 500 MG TAB PO SCH ×2 (09:11→22:28)
[2022-03-11] MEDS: predniSONE 5 MG TAB PO SCH (09:12)
[2022-03-11] MEDS: amLODIPine BESYLATE 5 MG TAB PO SCH (09:12)
[2022-03-11] MEDS: hydrOXYchloroQUINE SULFATE 200 MG TAB PO SCH ×2 (09:12→21:20)
[2022-03-11] MEDS: LOSARTAN POTASSIUM 50 MG TAB PO SCH (09:13)
[2022-03-11] MEDS: SODIUM CHLORIDE 0.9% 1,000 ML IV SCH ×2 (09:30→19:30)
[2022-03-11 11:33] LABS: Basophils # (auto) 0.1 10 ^3/uL (0-0.2); Basophils % (auto) 1.3 % (0.0-2.0); Eosinophils # (auto) 0 10 ^3/uL (0-0.8); Eosinophils % (auto) 0.9 % (0.0-7.0); Hematocrit 40.2 % (36.0-46.0); Hemoglobin 13.6 g/dL (12.2-16.2); Lymphocytes # (auto) 0.7 10 ^3/uL (0.4-5.4); Lymphocytes % (auto) 13.6 % (10.0-50.0); Mean Corpuscular Hemoglobin 32.9 pg (28.0-32.0); Mean Corpuscular Hgb Conc. 33.9 g/dL (32.0-36.0); Mean Corpuscular Volume 97.2 fL (80.0-100.0); Monocytes # (auto) 0.5 10 ^3/uL (0-1.3); Monocytes % (auto) 10.8 % (0.0-12.0); Neutrophils # (auto) 3.7 10 ^3/uL (1.6-8.6); Neutrophils % (auto) 73.4 % (37.0-80.0); Nucleated Red Blood Cells % 0.2 %; Red Blood Cells 4.13 10^6/uL (4.0-5.20); Red Cell Distribution Width 13.5 % (11.8-14.3)
[2022-03-11 11:49] LABS: INR 1.45 (0.9-1.15)
[2022-03-11] MEDS: cloNIDine HCL 0.1 MG TAB PO PRN ×2 (12:56→22:34)
[2022-03-11 12:57] VITALS: BP 186/128
[2022-03-11 14:13] VITALS: BP 160/81
[2022-03-11 16:39] VITALS: BP 145/86
[2022-03-11] MEDS ORDERED: WARFARIN SODIUM 5 MG TAB PO ONE (17:00)
[2022-03-11] MEDS: CLINDAMYCIN HCL 150 MG CAP PO SCH (21:20)
[2022-03-11 22:00] VITALS: BP 168/78
[2022-03-12] MEDS: MORPHINE SULFATE INJ 2 MG/ml SYRG IV PRN ×5 (01:20→21:16)
[2022-03-12] MEDS: HYDROcodone-ACET 10/325MG TAB PO PRN ×4 (03:55→22:46)
[2022-03-12 05:00] VITALS: BP 171/86
[2022-03-12] MEDS: GABAPENTIN 300 MG CAP PO SCH ×3 (05:28→21:16)
[2022-03-12] MEDS: CLINDAMYCIN HCL 150 MG CAP PO SCH ×3 (05:28→21:22)
[2022-03-12] MEDS: cloNIDine HCL 0.1 MG TAB PO PRN ×2 (05:29→21:15)
[2022-03-12] MEDS: SODIUM CHLORIDE 0.9% 1,000 ML IV SCH (05:30)
[2022-03-12 06:01] LABS: INR 1.94 (0.9-1.15); Partial Thromboplastin Time 33.7 sec (23.6-33.0)
[2022-03-12 09:00] VITALS: BP 146/81
[2022-03-12] MEDS: predniSONE 5 MG TAB PO SCH (09:42)
[2022-03-12] MEDS: MYCOPHENOLATE 500 MG TAB PO SCH ×2 (09:42→21:13)
[2022-03-12] MEDS: amLODIPine BESYLATE 5 MG TAB PO SCH (09:43)
[2022-03-12] MEDS: LOSARTAN POTASSIUM 50 MG TAB PO SCH (09:43)
[2022-03-12] MEDS: hydrOXYchloroQUINE SULFATE 200 MG TAB PO SCH ×2 (09:43→21:16)
[2022-03-12 13:00] VITALS: BP 143/95
[2022-03-12 17:00] VITALS: BP 143/105
[2022-03-12] MEDS ORDERED: WARFARIN SODIUM 2 MG TAB PO ONE (17:00)
[2022-03-12 20:00] VITALS: BP 177/96
[2022-03-12 21:47] VITALS: BP 169/107
[2022-03-13] MEDS: MORPHINE SULFATE INJ 2 MG/ml SYRG IV PRN ×6 (01:21→22:42)
[2022-03-13 05:00] VITALS: BP 159/89
[2022-03-13] MEDS: CLINDAMYCIN HCL 150 MG CAP PO SCH ×3 (05:17→22:12)
[2022-03-13] MEDS: GABAPENTIN 300 MG CAP PO SCH ×3 (05:17→22:12)
[2022-03-13 09:00] VITALS: BP 143/96
[2022-03-13] MEDS: LOSARTAN POTASSIUM 50 MG TAB PO SCH (09:30)
[2022-03-13] MEDS: amLODIPine BESYLATE 5 MG TAB PO SCH (09:30)
[2022-03-13] MEDS: predniSONE 5 MG TAB PO SCH (09:30)
[2022-03-13] MEDS: hydrOXYchloroQUINE SULFATE 200 MG TAB PO SCH ×2 (09:31→22:13)
[2022-03-13] MEDS: MYCOPHENOLATE 500 MG TAB PO SCH ×2 (09:31→22:12)
[2022-03-13] MEDS: HYDROcodone-ACET 10/325MG TAB PO PRN ×2 (11:14→16:46)
[2022-03-13 12:05] LABS: INR 3.03 (0.9-1.15); Partial Thromboplastin Time 34.7 sec (23.6-33.0)
[2022-03-13 13:00] VITALS: BP 145/90
[2022-03-13 17:00] VITALS: BP 159/81
[2022-03-13 22:00] VITALS: BP 137/85
[2022-03-14] MEDS: MORPHINE SULFATE INJ 2 MG/ml SYRG IV PRN ×3 (02:48→10:34)
[2022-03-14] MEDS: HYDROcodone-ACET 10/325MG TAB PO PRN (04:58)
[2022-03-14 05:00] VITALS: BP 152/78
[2022-03-14] MEDS: GABAPENTIN 300 MG CAP PO SCH (06:27)
[2022-03-14] MEDS: CLINDAMYCIN HCL 150 MG CAP PO SCH (06:27)
[2022-03-14 09:00] VITALS: BP 154/93
[2022-03-14] MEDS: hydrOXYchloroQUINE SULFATE 200 MG TAB PO SCH (10:32)
[2022-03-14] MEDS: predniSONE 5 MG TAB PO SCH (10:32)
[2022-03-14] MEDS: MYCOPHENOLATE 500 MG TAB PO SCH (10:32)
[2022-03-14] MEDS: LOSARTAN POTASSIUM 50 MG TAB PO SCH (10:33)
[2022-03-14] MEDS: amLODIPine BESYLATE 5 MG TAB PO SCH (10:34)
[2022-03-14] MEDS ORDERED: GABA300C10 PO (10:35)
[2022-03-14] MEDS ORDERED: CLIN300C8 PO (10:35)
[2022-03-14] MEDS ORDERED: WARF3TAB22 PO (10:35)
[2022-03-14] MEDS ORDERED: HYDR-4902 PO (10:54)
[2022-03-14 11:04] VITALS: BP 136/88
== END 2022-03-14 13:30 | disposition home or self-care (01) | DRG 383 ==
LOC: ER 15:23 → TELE-WESTW 19:06 → ER 21:45 → WEST WING 03-13 14:50
PROVIDERS: ADMIT Registered Nurse; ATTEND Family Medicine
DX: L03.114 Cellulitis of left upper limb (principal); D68.61 Antiphospholipid syndrome; M32.14 Glomerular disease in systemic lupus erythematosus; I12.0 Hypertensive chronic kidney disease with stage 5 chronic kidney disease or end stage renal disease; N18.6 End stage renal disease; M32.9 Systemic lupus erythematosus, unspecified; J45.909 Unspecified asthma, uncomplicated; Z20.822 Contact with and (suspected) exposure to COVID-19; Z86.718 Personal history of other venous thrombosis and embolism; Z86.73 Personal history of transient ischemic attack (TIA), and cerebral infarction without residual deficits; Z82.49 Family history of ischemic heart disease and other diseases of the circulatory system; Z87.891 Personal history of nicotine dependence
CPT/HCPCS: 36415; 72125; 72141; 80053; 80061; 81001; 82570; 83036; 83605; 83735; 84156; 84311; 84702; 85025; 85610; 85652; 85730; 86141; 86160; 87040; 93306; 93971; 96365; 96367; 96372; 96375; 96376; G0378; J0696; J2405; J3490; J7517

== ENCOUNTER 2022-03-23 22:52 | Emergency (ER) | payer MEDICARE, MEDICAID ==
[~2022-03-23] VITALS: Ht 165.1 cm; Wt 77.1 kg
[~2022-03-23 22:52] MED LIST changes: +AMLO-489 PO; +CLIN300C8 PO; +GABA300C10 PO; +HYDR-4902 PO; +HYDR200T36 PO; +LOSA-39 PO; +MYCO500T3 PO; +PRED20TA2 PO; +WARF3TAB22 PO
[2022-03-23 22:58] VITALS: BP 118/48
[2022-03-23 23:50] LABS: Basophils # (auto) 0.1 10 ^3/uL (0-0.2); Basophils % (auto) 0.5 % (0.0-2.0); Eosinophils # (auto) 0.1 10 ^3/uL (0-0.8); Eosinophils % (auto) 0.7 % (0.0-7.0); Hematocrit 34.9 % (36.0-46.0); Hemoglobin 11.7 g/dL (12.2-16.2); Lymphocytes # (auto) 0.8 10 ^3/uL (0.4-5.4); Lymphocytes % (auto) 7.3 % (10.0-50.0); Mean Corpuscular Hemoglobin 32.3 pg (28.0-32.0); Mean Corpuscular Hgb Conc. 33.5 g/dL (32.0-36.0); Mean Corpuscular Volume 96.5 fL (80.0-100.0); Monocytes # (auto) 0.8 10 ^3/uL (0-1.3); Monocytes % (auto) 7.1 % (0.0-12.0); Neutrophils # (auto) 9.5 10 ^3/uL (1.6-8.6); Neutrophils % (auto) 84.4 % (37.0-80.0); Nucleated Red Blood Cells % 0.1 %; Red Blood Cells 3.62 10^6/uL (4.0-5.20); Red Cell Distribution Width 13.6 % (11.8-14.3); White Blood Cell 11.3 10^3/uL (4.4-10.8)
[2022-03-24 00:10] LABS: Albumin 3.1 g/dL (3.4-5.0); BUN/Creatinine Ratio 7.5; Calcium 8.9 mg/dL (8.5-10.1); Potassium 3.5 mmol/L (3.5-5.1)
[2022-03-24 00:13] LABS: Bilirubin, Total 0.7 mg/dL (0.2-1.0); Total Protein 6.9 g/dL (6.4-8.2)
[2022-03-24] MEDS ORDERED: SODIUM CHLORIDE 0.9% 1,000 ML IV ONE (01:00)
== END 2022-03-24 03:04 | disposition left against medical advice (07) ==
LOC: ER 22:52
DX: N17.9 Acute kidney failure, unspecified (principal); B02.9 Zoster without complications; J45.909 Unspecified asthma, uncomplicated; I10 Essential (primary) hypertension; Z87.891 Personal history of nicotine dependence; Z98.51 Tubal ligation status; Z86.73 Personal history of transient ischemic attack (TIA), and cerebral infarction without residual deficits
CPT/HCPCS: 36415; 70450; 80053; 80320; 84702; 85025; 93005

== ENCOUNTER 2022-03-29 21:55 | Emergency (ER) | payer MEDICARE, MEDICAID ==
[~2022-03-29] VITALS: Ht 165.1 cm; Wt 77.1 kg
[2022-03-29 21:55] VITALS: BP 140/85
[2022-03-30 00:08] LABS: Basophils # (auto) 0 10 ^3/uL (0-0.2); Basophils % (auto) 0.1 % (0.0-2.0); Eosinophils # (auto) 0 10 ^3/uL (0-0.8); Eosinophils % (auto) 0.2 % (0.0-7.0); Hematocrit 36.1 % (36.0-46.0); Hemoglobin 12.2 g/dL (12.2-16.2); Lymphocytes # (auto) 0.5 10 ^3/uL (0.4-5.4); Lymphocytes % (auto) 4.9 % (10.0-50.0); Mean Corpuscular Hemoglobin 32.5 pg (28.0-32.0); Mean Corpuscular Hgb Conc. 33.9 g/dL (32.0-36.0); Mean Corpuscular Volume 95.8 fL (80.0-100.0); Monocytes # (auto) 0.3 10 ^3/uL (0-1.3); Monocytes % (auto) 2.7 % (0.0-12.0); Neutrophils # (auto) 9.5 10 ^3/uL (1.6-8.6); Neutrophils % (auto) 92.1 % (37.0-80.0); Red Blood Cells 3.77 10^6/uL (4.0-5.20); Red Cell Distribution Width 13.7 % (11.8-14.3); White Blood Cell 10.3 10^3/uL (4.4-10.8)
[2022-03-30 00:27] LABS: Albumin 3.1 g/dL (3.4-5.0); BUN/Creatinine Ratio 17.4; Calcium 8.9 mg/dL (8.5-10.1); Magnesium 2.8 mg/dL (1.6-2.6)
[2022-03-30 00:29] LABS: Bilirubin, Total 0.4 mg/dL (0.2-1.0)
[2022-03-30] MEDS ORDERED: PANT40TA2 PO (00:34)
== END 2022-03-30 04:15 | disposition home or self-care (01) ==
LOC: ER 21:55
DX: M32.9 Systemic lupus erythematosus, unspecified (principal); B02.9 Zoster without complications; K29.70 Gastritis, unspecified, without bleeding; M32.14 Glomerular disease in systemic lupus erythematosus; I12.9 Hypertensive chronic kidney disease with stage 1 through stage 4 chronic kidney disease, or unspecified chronic kidney disease; N18.9 Chronic kidney disease, unspecified; J45.909 Unspecified asthma, uncomplicated; Z86.73 Personal history of transient ischemic attack (TIA), and cerebral infarction without residual deficits; Z87.891 Personal history of nicotine dependence; Z79.899 Other long term (current) drug therapy; Z79.01 Long term (current) use of anticoagulants; Z79.2 Long term (current) use of antibiotics
CPT/HCPCS: 36415; 80053; 83735; 85025

== ENCOUNTER 2023-04-05 09:22 | Inpatient (IN) | payer MEDICARE, MEDICAID ==
[2023-03-31 14:50] LABS: Basophils # (auto) 0 10 ^3/uL (0-0.2); Eosinophils # (auto) 0 10 ^3/uL (0-0.8); Lymphocytes # (auto) 0.8 10 ^3/uL (0.4-5.4); Monocytes # (auto) 0.2 10 ^3/uL (0-1.3); Neutrophils % (auto) 90.6 % (37.0-80.0); Nucleated Red Blood Cells % 0.1 %
[2023-03-31 14:51] LABS: Basophils % (auto) 0.2 % (0.0-2.0); Hematocrit 33.5 % (36.0-46.0); Hemoglobin 10.4 g/dL (12.2-16.2); Mean Corpuscular Hemoglobin 26.7 pg (28.0-32.0); Mean Corpuscular Hgb Conc. 31.2 g/dL (32.0-36.0); Mean Corpuscular Volume 85.6 fL (80.0-100.0); Monocytes % (auto) 2.2 % (0.0-12.0); Neutrophils # (auto) 9.9 10 ^3/uL (1.6-8.6); Red Blood Cells 3.91 10^6/uL (4.0-5.20); Red Cell Distribution Width 16.8 % (11.8-14.3); White Blood Cell 10.9 10^3/uL (4.4-10.8)
[2023-03-31 15:07] LABS: INR 0.94 (0.9-1.15); Partial Thromboplastin Time 25.9 sec (24.6-33.4)
[2023-03-31 15:20] LABS: BUN/Creatinine Ratio 12.3 (10.0-20.0); Calcium 8.1 mg/dL (8.5-10.1); Potassium 3.9 mmol/L (3.5-5.1)
[2023-03-31 15:22] LABS: Bilirubin, Total 0.4 mg/dL (0.2-1.0); Total Protein 7.2 g/dL (6.4-8.2)
[2023-04-01 12:50] LABS: Urine Bacteria FEW /hpf (None Seen); Urine Blood Negative /uL (Negative); Urine Specific Gravity 1.014 (1.001-1.035); Urine WBC 8 /hpf (0 - 5)
[~2023-04-05] VITALS: Ht 162.6 cm; Wt 87.1 kg
[2023-04-05] VITALS (7 sets, daily range): BP systolic 136–155; BP diastolic 63–99
[~2023-04-05 09:22] MED LIST changes: -ACYC-166 PO; -ALBU2TAB4 PO; +ALBUAER3 IN; -AMLO-489 PO; +ATO40T PO; -CLIN300C8 PO; -GABA300C10 PO; -HYDR-4798 PO; -HYDR-4902 PO; -LOSA-39 PO; +LOSA100T58 PO; +MAGN400T40 OR; -MYCO500T3 PO; -ONDA-144 PO; +PANT40TA2 PO; +PILO5TAB10 PO; +PRED10TA PO; -PRED20TA2 PO; +PREG75CA PO; +SODI650T PO; +WARF-66 PO; -WARF3TAB22 PO
[2023-04-05] MEDS ORDERED: ceFAZolin 1GM/50ML 100 ML IV ONE (10:58)
[2023-04-05] MEDS ORDERED: MORPHINE SULF PF 5 MG/10 ML VIAL ONE (14:09)
[2023-04-05] MEDS ORDERED: fentaNYL CITRATE 100 MCG/2 ML VL ONE (14:10)
[2023-04-05] MEDS ORDERED: MIDAZOLAM HCL 2MG/2ML 2ml VIAL (1mg/ml) ONE ×2 (14:10→14:26)
[2023-04-05] MEDS ORDERED: TETRACAINE 1% INJ 2 ML VIAL IJ ONE (14:11)
[2023-04-05] MEDS ORDERED: KETAMINE HCL 10 ML ONE (15:38)
[2023-04-05] MEDS ORDERED: HYDR1TAB97 PO (15:51)
[2023-04-05] MEDS ORDERED: NALBUPHINE HCL 10 MG/1ml INJECTION SUBCUT ONE (16:15)
[2023-04-05] MEDS ORDERED: diphenhdrAMINE HCL 50 MG/1 ML VL IV PRN (16:15)
[2023-04-05] MEDS ORDERED: HYDROmorphone HCL 2 MG/ML VL/or syr IV PRN (16:15)
[2023-04-05] MEDS ORDERED: NALOXONE HCL 0.4 MG/ML VIAL IV PRN (16:15)
[2023-04-05] MEDS ORDERED: ONDANSETRON HCL 4 MG/2 ML VIAL IV PRN ×3 (16:15→16:45)
[2023-04-05] MEDS ORDERED: PROPOFOL 10 MG/ML 20 ML IV ONE (16:34)
[2023-04-05] MEDS ORDERED: ONDANSETRON HCL 4 MG/2 ML VIAL ONE (16:36)
[2023-04-05] MEDS ORDERED: ALBUTEROL SULF HFA 90MCG INH 200DOSE IN SCH (16:45)
[2023-04-05] MEDS ORDERED: LACTATED RINGER'S 1,000 ML IV SCH (16:45)
[2023-04-05] MEDS ORDERED: NITROGLYCERIN 0.4 MG SL TAB SL PRN ×2 (16:45)
[2023-04-05] MEDS ORDERED: MORPHINE SULFATE INJ 2 MG/ml SYRG IV PRN (16:45)
[2023-04-05] MEDS: DOCUSATE SOD 100 MG CAP PO SCH (21:22)
[2023-04-05] MEDS: hydrOXYchloroQUINE SULFATE 200 MG TAB PO SCH (21:22)
[2023-04-05] MEDS: oxyCODONE ER 10 MG TAB PO SCH (21:23)
[2023-04-06] VITALS (18 sets, daily range): BP systolic 135–165; BP diastolic 58–91
[2023-04-06] MEDS: HYDROcodone-ACET 5/325MG TAB PO PRN ×2 (01:44→12:25)
[2023-04-06] MEDS: hydrOXYchloroQUINE SULFATE 200 MG TAB PO SCH (09:28)
[2023-04-06] MEDS: DOCUSATE SOD 100 MG CAP PO SCH (09:29)
[2023-04-06] MEDS: oxyCODONE ER 10 MG TAB PO SCH (09:30)
[2023-04-06] MEDS ORDERED: MAGNESIUM OXIDE 400 MG TAB PO SCH (10:00)
[2023-04-06] MEDS ORDERED: LOSARTAN POTASSIUM 50 MG TAB PO SCH (10:00)
[2023-04-06] MEDS ORDERED: predniSONE 5 MG TAB PO SCH (10:00)
[2023-04-06] MEDS ORDERED: PANTOPRAZOLE 40 MG TAB PO SCH (10:00)
[2023-04-06] MEDS ORDERED: SODIUM BICARBONATE 650 MG TAB PO SCH (10:00)
[2023-04-06 12:58] LABS: Basophils # (auto) 0 10 ^3/uL (0-0.2); Basophils % (auto) 0.4 % (0.0-2.0); Eosinophils # (auto) 0 10 ^3/uL (0-0.8); Eosinophils % (auto) 0.2 % (0.0-7.0); Hematocrit 32.5 % (36.0-46.0); Hemoglobin 10.3 g/dL (12.2-16.2); Lymphocytes # (auto) 0.8 10 ^3/uL (0.4-5.4); Lymphocytes % (auto) 9.6 % (10.0-50.0); Mean Corpuscular Hemoglobin 26.5 pg (28.0-32.0); Mean Corpuscular Hgb Conc. 31.6 g/dL (32.0-36.0); Monocytes # (auto) 0.5 10 ^3/uL (0-1.3); Monocytes % (auto) 5.4 % (0.0-12.0); Neutrophils # (auto) 7.5 10 ^3/uL (1.6-8.6); Neutrophils % (auto) 84.4 % (37.0-80.0); Red Blood Cells 3.87 10^6/uL (4.0-5.20); Red Cell Distribution Width 16.3 % (11.8-14.3); White Blood Cell 8.9 10^3/uL (4.4-10.8)
[2023-04-06 13:10] LABS: INR 0.93 (0.9-1.15); Magnesium 2.1 mg/dL (1.6-2.6); Partial Thromboplastin Time 25.6 sec (24.6-33.4)
[2023-04-06] MEDS ORDERED: WARFARIN SODIUM 5 MG TAB PO ONE (14:30)
[2023-04-06] MEDS ORDERED: ATORVASTATIN 20 MG TAB PO SCH (22:00)
== END 2023-04-06 17:37 | disposition home or self-care (01) | DRG 482 ==
LOC: SUR 09:22 → TELE-CENTR 16:36
PROVIDERS: ADMIT Orthopaedic Surgery Sports Medicine; ATTEND Orthopaedic Surgery Sports Medicine
PROC: 0QR Lower Bones, Replacement (ICD-10-PCS; principal; 2023-04-05 14:10)
DX: M87.851 Other osteonecrosis, right femur (principal); Z01.812 Encounter for preprocedural laboratory examination
CPT/HCPCS: 36415; 73501; 76000; 80053; 81001; 81025; 82565; 83735; 85025; 85610; 85730; 97163; G0378; J0690; J2250; J2405; J2704